=== PATIENT | female | born 1980 | race Caucasian/White ===

== ENCOUNTER 2017-11-30 20:43 | Emergency (ER) | payer SELFPAY ==
[2017-11-30 21:31] LABS: Absolute Lymphocytes (CBC) 2.9 K/uL (0.7-4.9); Absolute Monocytes 0.8 K/uL (0.1-1.3); Basophils % 0.8 % (0-1.3); Hematocrit 35.4 % (36.0-45.0); Lymphocytes % 26.7 % (15.3-44.8); MCV 69.5 fL (80-100); Monocytes % 6.9 % (3.3-12.3); RBC Red Blood Cell Count 5.09 M/uL (3.86-4.86)
[2017-11-30 21:32] LABS: Urine Blood TRACE (NEG); Urine Glucose NEGATIVE (NEG); Urine Protein NEGATIVE (NEG); Urine Specific Gravity >1.030 (1.005-1.030)
[2017-11-30] MEDS ORDERED: ONDANSETRON 4 MG/2 ML VIAL ONE (21:42)
[2017-11-30] MEDS ORDERED: MORPHINE 4 MG/ML SYR ONE (21:42)
[2017-11-30 21:45] LABS: Urine Bacteria <20 /HPF (<20); Urine Culture Reflex Order REFLEXED; Urine Mucus SLIGHT /HPF (NONE SEEN); Urine RBC <5 /HPF (NONE SEEN); Urine Trichomonas PRESENT (NONE SEEN)
[2017-11-30 21:49] LABS: ALT/SGPT 21 U/L (12-78); AST/SGOT 12 U/L (15-37); Albumin 3.5 g/dL (3.4-5.0); Alkaline Phosphatase 91 U/L (45-117); Amylase Level 22 U/L (25-115); BUN Blood Urea Nitrogen 6 mg/dL (7-18); Bicarbonate 26 mmol/L (21-32); Bilirubin Direct < 0.1 mg/dL (0-0.2); Bilirubin Total 0.3 mg/dL (0.2-1.0); Glucose Level 101 mg/dL (74-106); Lipase 96 U/L (73-393); Potassium 3.9 mmol/L (3.5-5.1); Protein, Total 7.6 g/dL (6.4-8.2); Sodium Level 140 mmol/L (136-145)
[2017-11-30 22:29] LABS: Anisocytosis 1+; Blood Morphology Comment NOTED (NOT SEEN); Platelet Estimate ADEQ; Teardrop Cell 1+; Urine White Blood Cell Casts OK
--- NOTE | 2017-12-01 01:50 | ER ---
Nurse's Notes [facility] Name: Brittany Johnson Age: 37 yrs Sex: Female : 1980 Arrival Date: 11/30/2017 Time: 20:44 Bed 20 Private MD: Diagnosis: Mass of Uterus;Trichomoniasis Presentation: 11/30 20:50 Presenting complaint: Patient states: that she is having right lower abd pain that fc started 2 days ago. Gotten worse the past 2 hrs and now radiates to right lower back. Getting out of chair or bending over makes it worse. Denies any urinary problems nausea, vomiting or diarrhea. Transition of care: patient was not received from another setting of care. Onset of symptoms was November 28, 2017. Risk Assessment: Do you want to hurt yourself or someone else? Patient reports no desire to harm self or others. Initial Sepsis Screen: Does the patient meet any 2 criteria? No. Patient's initial sepsis screen is negative. Does the patient have a suspected source of infection? No. Patient's initial sepsis screen is negative. Care prior to arrival: None. 20:50 Method Of Arrival: Ambulatory 20:50 Acuity: YASEMIN 3 Triage Assessment: 20:53 General: Appears uncomfortable, obese, Behavior is calm, cooperative, appropriate for age. Pain: Complains of pain in right lower quadrant Pain radiates to right low back Pain currently is 7 out of 10 on a pain scale. Quality of pain is described as aching, dull, sharp, shooting, Pain began 2-3 days ago. Is continuous, Aggravated by increased activity, repositioning, weight bearing. EENT: No deficits noted. Neuro: Level of Consciousness is awake, alert, obeys commands, Oriented to person, place, time, situation. Cardiovascular: No deficits noted. Respiratory: No deficits noted. GI: Abdomen is obese, Reports lower abdominal pain, Patient currently denies diarrhea, nausea, vomiting. : No deficits noted. Derm: Skin is pink, warm \T\ dry. Musculoskeletal: Circulation, motion, and sensation intact. Capillary refill < 3 seconds, Range of motion: intact in all extremities. 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 - Social history:: Smoking status: Patient uses tobacco products, smokes one pack cigarettes per day. - Ebola Screening: : Patient negative for fever greater than or equal to 101.5 degrees Fahrenheit, and additional compatible Ebola Virus Disease symptoms Patient denies exposure to infectious person Patient denies travel to an Ebola-affected area in the 21 days before illness onset. Screenin:50 Abuse screen: Denies threats or abuse. Denies injuries from another. Nutritional bs1 screening: No deficits noted. Tuberculosis screening: No symptoms or risk factors identified. Fall Risk None identified. Assessment: 21:15 : Reports pain in right flank(s), Denies burning with urination. EENT: No signs bs1 and/or symptoms were reported regarding the EENT system. Derm: Skin is intact. Musculoskeletal: Circulation, motion, and sensation intact. Capillary refill < 3 seconds, Range of motion: intact in all extremities. 21:15 General: Appears in no apparent distress. uncomfortable, Behavior is cooperative, bs1 anxious. Pain: Complains of pain in right low back and abdomen and right lower quadrant. Neuro: Level of Consciousness is awake, alert, obeys commands, Oriented to person, place, time, situation, Appropriate for age. Cardiovascular: Denies chest pain, shortness of breath, Heart tones S1 S2 present Capillary refill < 3 seconds Patient's skin is warm and dry. Respiratory: Airway is patent Trachea midline Respiratory effort is even, unlabored, Respiratory pattern is regular, symmetrical, Breath sounds are clear bilaterally. GI: Abdomen is round non-distended, Bowel sounds present X 4 quads. Abdomen is tender to palpation in right lower quadrant Reports lower abdominal pain, Patient currently denies nausea. 22:45 Reassessment: No changes from previously documented assessment. Patient and/or family bs1 updated on plan of care and expected duration. Pain level reassessed. Patient is alert, oriented x 3, equal unlabored respirations, skin warm/dry/pink. patient refused IV pain medication. 23:45 Reassessment: Patient appears in no apparent distress at this time. Patient and/or bs1 family updated on plan of care and expected duration. Pain level reassessed. Patient is alert, oriented x 3, equal unlabored respirations, skin warm/dry/pink. Pending CT of abdomen. 12/01 00:11 Reassessment: Patient in CT. bs1 00:25 Reassessment: Patient appears in no apparent distress at this time. Patient is alert, bs1 oriented x 3, equal unlabored respirations, skin warm/dry/pink. Patient back from CT. 01:48 Reassessment: Patient appears in no apparent distress at this time. Patient and/or bs1 family updated on plan of care and expected duration. Pain level reassessed. Patient is alert, oriented x 3, equal unlabored respirations, skin warm/dry/pink. patient instructed on dc papers. Patient states understanding of POC and follow up. Vital Signs: 11/30 20:55 BP 119 / 69; Pulse 89; Resp 20; Temp 98.1(O); Pulse Ox 96% on R/A; Weight 106.59 kg fc (R); Height 5 ft. 7 in. (170.18 cm) (R); Pain 7/10; 21:55 BP 109 / 54; Pulse 89; Resp 16 S; Pulse Ox 98% on R/A; bs1 22:55 BP 104 / 76; Pulse 79; Resp 16 S; Pulse Ox 100% on R/A; bs1 23:55 BP 115 / 88; Pulse 80; Resp 16 S; Pulse Ox 97% on R/A; bs1 12/01 00:55 BP 111 / 76; Pulse 75; Resp 17; Pulse Ox 98% on R/A; bs1 01:55 BP 102 / 57; Pulse 85; Resp 16 S; Temp 98(O); Pulse Ox 97% on R/A; Pain 4/10; bs1 11/30 20:55 Body Mass Index 36.81 (106.59 kg, 170.18 cm) ED Course: 11/30 20:44 Patient arrived in ED. es 20:52 Triage completed. fc 20:55 Arm band placed on Patient placed in an exam room, on a stretcher. fc 20:59 Landry Dhillon PA is PHCP. cp 20:59 Vasquez Sears MD is Attending Physician. cp 21:04 Angelica Rios RN is Primary Nurse. bs1 21:14 Inserted saline lock: 20 gauge in right antecubital area, using aseptic technique. bs1 Blood collected. 21:30 Patient has correct armband on for positive identification. Bed in low position. Call bs1 light in reach. Side rails up X 1. Pulse ox on. NIBP on. 21:33 Oral contrast given. jj2 12/01 00:17 CT Abd/Pelvis - W/Contrast In Process Unspecified. EDMS 00:36 CT completed. Patient tolerated procedure well. Patient moved to CT via wheelchair. Patient moved back from CT. 00:45 Bladder scan completed. 0, informed PA. bs1 01:48 Angela Sifuentes MD is Referral Physician. cp 01:57 No provider procedures requiring assistance completed. IV discontinued, bleeding bs1 controlled, No redness/swelling at site. Pressure dressing applied. Administered Medications: 01:53 Drug: Zithromax 1 grams Route: PO; bs1 01:54 Follow up: Response: No adverse reaction bs1 01:53 Drug: metroNIDAZOLE 2 grams Route: PO; bs1 01:54 Follow up: Response: No adverse reaction bs1 01:54 Drug: Rocephin 1 grams Route: IV; Rate: calculated rate; Site: right antecubital; bs1 01:54 Follow up: IV Status: Completed infusion bs1 01:55 Not Given (Patient Refused): morphine 2 mg IVP once bs1 01:55 Not Given (Patient Refused): Zofran 4 mg IVP once; over 2 minutes bs1 Outcome: 01:49 Discharge ordered by MD. cp 01:58 Discharged to home ambulatory. bs1 01:58 Condition: stable 01:58 Discharge instructions given to patient, Instructed on discharge instructions, follow up and referral plans. medication usage, Demonstrated understanding of instructions, follow-up care, medications. 01:59 Patient left the ED. bs1 Signatures: Dispatcher [employer] Shaina Nick Ervin eh Jaramillo, Justin jj2 Chretien, Felicia, RN RN Landry Balderas PA PA cp Salazar, Brittany, RN RN bs1 Corrections: (The following items were deleted from the chart) 11/30 22:00 21:55 GI: Abdomen is round non-distended, Bowel sounds present X 4 quads. Abdomen is bs1 tender to palpation in right lower quadrant bs1 22:01 21:55 General: Appears in no apparent distress. uncomfortable, Behavior is cooperative, bs1 anxious, bs1 : 21:55 Pain: Complains of pain in right low back and abdomen and right lower quadrant bs1bs1 : 21:55 Neuro: Level of Consciousness is awake, alert, obeys commands, Oriented to bs1 person, place, time, situation, Appropriate for age bs1 : 21:55 Cardiovascular: Denies chest pain, shortness of breath, Heart tones S1 S2 present bs1 Capillary refill < 3 seconds Patient's skin is warm and dry. bs1 : 21:55 Respiratory: Airway is patent Trachea midline Respiratory effort is even, bs1 unlabored, Respiratory pattern is regular, symmetrical, Breath sounds are clear bilaterally. bs1 22: 21:55 GI: Abdomen is round non-distended, Bowel sounds present X 4 quads. Abdomen is bs1 tender to palpation in right lower quadrant Reports lower abdominal pain, Patient currently denies nausea, bs1
--- NOTE | 2017-12-01 01:50 | EDPHYS ---
Physician Documentation [facility] Name: Brittany Johnson Age: 37 yrs Sex: Female : 1980 Arrival Date: 11/30/2017 Time: 20:44 Bed 20 Private MD: ED Physician Vasquez Sears HPI: 11/30 21:15 This 37 yrs old Female presents to ER via Ambulatory with complaints of cp Abdominal Pain. 21:15 The patient presents with abdominal pain in the lower abdomen. Onset: The cp symptoms/episode began/occurred 2 day(s) ago. The symptoms radiate to Associated signs and symptoms: Pertinent positives: nausea, Pertinent negatives: blood in stools, constipation, diarrhea, dysuria, fever, vomiting. Modifying factors: the symptoms are aggravated by movement, pressure. 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 - Social history:: Smoking status: Patient uses tobacco products, smokes one pack cigarettes per day. - Ebola Screening: : Patient negative for fever greater than or equal to 101.5 degrees Fahrenheit, and additional compatible Ebola Virus Disease symptoms Patient denies exposure to infectious person Patient denies travel to an Ebola-affected area in the 21 days before illness onset. ROS: 21:20 Constitutional: Negative for body aches, chills, fever, poor PO intake. cp 21:20 Eyes: Negative for injury, pain, redness, and discharge. cp 21:20 ENT: Negative for drainage from ear(s), ear pain, sore throat, difficulty swallowing, difficulty handling secretions. 21:20 Cardiovascular: Negative for chest pain, edema, palpitations. 21:20 Respiratory: Negative for cough, shortness of breath, wheezing. 21:20 Abdomen/GI: Positive for abdominal pain, nausea, Negative for vomiting, diarrhea, constipation, anorexia, black/tarry stool, rectal bleeding. 21:20 Back: Positive for radiated pain. 21:20 Skin: Negative for cellulitis, rash. 21:20 Neuro: Negative for altered mental status, headache, syncope, near syncope, weakness. 21:20 All other systems are negative. Exam: 21:25 Constitutional: The patient appears in no acute distress, alert, awake, non-toxic, well cp developed, well nourished. 21:25 Head/Face: Normocephalic, atraumatic. cp 21:25 Eyes: Periorbital structures: appear normal, Conjunctiva: normal, no exudate, no injection, Sclera: no appreciated abnormality, Lids and lashes: appear normal, bilaterally. 21:25 ENT: External ear(s): are unremarkable, Nose: is normal, Mouth: Lips: moist, Oral mucosa: moist, Posterior pharynx: is normal, airway is patent, no erythema, no exudate. 21:25 Neck: ROM/movement: is normal, is supple, without pain, no range of motions limitations, no nuchal rigidity. 21:25 Chest/axilla: Inspection: normal, Palpation: is normal, no crepitus, no tenderness. 21:25 Cardiovascular: Rate: normal, Rhythm: regular. 21:25 Respiratory: the patient does not display signs of respiratory distress, Respirations: normal, no use of accessory muscles, no retractions, no splinting, no tachypnea, labored breathing, is not present, Breath sounds: are clear throughout, no decreased breath sounds, no stridor, no wheezing. 21:25 Abdomen/GI: Inspection: distension, that is moderate, Bowel sounds: active, all quadrants, Palpation: soft, in all quadrants, moderate abdominal tenderness, in the right lower quadrant, rebound tenderness, is not appreciated, voluntary guarding, is not appreciated, involuntary guarding, is not appreciated. 21:25 Skin: cellulitis, is not appreciated, no rash present. 21:25 Neuro: Orientation: to person, place \T\ time. Mentation: lucid, able to follow commands, Cerebellar function: is grossly normal, Motor: moves all fours, strength is normal, Sensation: no obvious gross deficits. Vital Signs: 20:55 BP 119 / 69; Pulse 89; Resp 20; Temp 98.1(O); Pulse Ox 96% on R/A; Weight 106.59 kg fc (R); Height 5 ft. 7 in. (170.18 cm) (R); Pain 7/10; 21:55 BP 109 / 54; Pulse 89; Resp 16 S; Pulse Ox 98% on R/A; bs1 22:55 BP 104 / 76; Pulse 79; Resp 16 S; Pulse Ox 100% on R/A; bs1 23:55 BP 115 / 88; Pulse 80; Resp 16 S; Pulse Ox 97% on R/A; bs1 12/01 00:55 BP 111 / 76; Pulse 75; Resp 17; Pulse Ox 98% on R/A; bs1 01:55 BP 102 / 57; Pulse 85; Resp 16 S; Temp 98(O); Pulse Ox 97% on R/A; Pain 4/10; bs1 11/30 20:55 Body Mass Index 36.81 (106.59 kg, 170.18 cm) fc MDM: 11/30 20:59 Patient medically screened. cp 21:30 Differential diagnosis: appendicitis, cholecystitis, Cholelithiasis, Ectopic , cp non-specific abd pain, Ovarian Torsion, Ureterolithiasis, urinary tract infection. 12/01 01:47 Data reviewed: vital signs, nurses notes, lab test result(s), radiologic studies, CT cp scan, and as a result, I will discharge patient. 01:48 Counseling: I had a detailed discussion with the patient and/or guardian regarding: the cp historical points, exam findings, and any diagnostic results supporting the discharge/admit diagnosis, lab results, radiology results, the need for outpatient follow up, for definitive care, an OB/Gyne specialist, to return to the emergency department if symptoms worsen or persist or if there are any questions or concerns that arise at home. 01:48 Response to treatment: the patient's symptoms have mildly improved after treatment, and cp as a result, I will discharge patient. Special discussion: Based on the patient's Hx, exam, and Dx evaluation, there is no indication for emergent surgery or inpatient Tx. It is understood by the patient/guardian that if the Sx's persist or worsen they need to return immediately for re-evaluation. 11/30 21:03 Order name: Amylase, Serum; Complete Time: 21:55 cp 11/30 21:55 Interpretation: CAREY 22; Reviewed. 11/30 21:03 Order name: Basic Metabolic Panel; Complete Time: 21:55 cp 11/30 21:55 Interpretation: Normal except: BUN 6; CRE 0.50. cp 11/30 21:03 Order name: CBC with Diff; Complete Time: 23:12 11/30 21:56 Interpretation: Normal except: WBC 11.0; RBC 5.09; HGB 11.2; HCT 35.4; MCV 69.5; MCH cp 22.0; MCHC 31.7; RDW 20.5. 11/30 21:03 Order name: Creatinine for Radiology; Complete Time: 21:55 cp 11/30 23:13 Interpretation: Normal except: CRE 0.50. 11/30 21:03 Order name: Hepatic Function; Complete Time: 21:55 cp 11/30 21:55 Interpretation: Normal except: AST 12; GLOB 4.1; A/G 0.9. 11/30 21:03 Order name: Lipase; Complete Time: 21:55 11/30 21:03 Order name: Urine Microscopic Only; Complete Time: 21:55 11/30 21:55 Interpretation: Normal except: UWBC 10-20; SQEPI 5-10; TRICH PRESENT. 11/30 21:25 Order name: CT Abd/Pelvis - W/Contrast 11/30 21:28 Order name: Urine Dipstick--Ancillary (enter results); Complete Time: 21:55 ms 11/30 21:56 Interpretation: Normal except: UBLD TRACE; UESTR 1+. 11/30 21:28 Order name: Urine --Ancillary (enter results); Complete Time: 21:55 ms 11/30 21:56 Interpretation: Reviewed. 11/30 21:33 Order name: CBC Smear Scan; Complete Time: 23:12 EDIL 11/30 21:46 Order name: Urine Culture [facility] 11/30 21:03 Order name: Urine Test (obtain specimen); Complete Time: 21:43 11/30 21:03 Order name: IV Saline Lock; Complete Time: 21:43 11/30 21:03 Order name: Labs collected and sent; Complete Time: 21:43 11/30 21:03 Order name: Urine Dipstick-Ancillary (obtain specimen); Complete Time: 21:43 cp 12/01 00:27 Order name: Bladder Scanner; Complete Time: 00:46 cp Administered Medications: 01:53 Drug: Zithromax 1 grams Route: PO; bs1 01:54 Follow up: Response: No adverse reaction bs1 01:53 Drug: metroNIDAZOLE 2 grams Route: PO; bs1 01:54 Follow up: Response: No adverse reaction bs1 01:54 Drug: Rocephin 1 grams Route: IV; Rate: calculated rate; Site: right antecubital; bs1 01:54 Follow up: IV Status: Completed infusion bs1 01:55 Not Given (Patient Refused): morphine 2 mg IVP once bs1 01:55 Not Given (Patient Refused): Zofran 4 mg IVP once; over 2 minutes bs1 Disposition: 06:24 Co-signature as Attending Physician, Vasquez Sears MD. Disposition: 12/01/17 01:49 Discharged to Home. Impression: Mass of Uterus, Trichomoniasis. - Condition is Stable. - Discharge Instructions: Trichomoniasis, Uterine Fibroids, [id number]. - Prescriptions for Tramadol 50 mg Oral Tablet - take 1 tablet by ORAL route every 8 hours as needed; 20 tablet. - Medication Reconciliation Form, Thank You Letter, Antibiotic Education, Prescription Opioid Use form. - Follow up: Angela Sifuentes MD; When: 1 - 2 days; Reason: uterine mass. - Problem is new. - Symptoms have improved. Signatures: Dispatcher [employer] EDMS Anika Springer RN RN Landry Balderas PA PA Vasquez Sears MD MD Angelica Rios RN RN bs1 Corrections: (The following items were deleted from the chart) 01:59 01:49 12/01/2017 01:49 Discharged to Home. Impression: Mass of Uterus; Trichomoniasis. bs1 Condition is Stable. Forms are Medication Reconciliation Form, Thank You Letter, Antibiotic Education, Prescription Opioid Use. Follow up: Angela Sifuentes; When: 1 - 2 days; Reason: uterine mass. Problem is new. Symptoms have improved. cp
[2017-12-01] MEDS ORDERED: metroNIDAZOLE 500 MG TABLET ONE (01:52)
[2017-12-01] MEDS ORDERED: AZITHROMYCIN 250 MG TAB ONE (01:52)
[2017-12-01] MEDS ORDERED: CEFTRIAXONE/SWI 1gm 1 GM/10 ML SYR ONE (01:53)
--- NOTE | 2017-12-01 08:06 | RAD REPORT ---
EXAM DESCRIPTION: CT - Abdomen Pelvis W Contrast - 12/01/2017 6:49 am CLINICAL HISTORY: Abdominal pain/right lower quadrant pain COMPARISON: none. TECHNIQUE: Computed axial tomography of the abdomen pelvis was obtained. 100 cc Isovue-300 was admin istered intravenously. Oral contrast was given. A preliminary report was generated by [facility] radiolo gi and reviewed prior to this dictation All CT scans are performed using dose optimization technique as appropriate and may include automated exposure control or mA/KV adjustment according to patient size. FINDINGS: The liver, spleen, pancreas, adrenal and kidneys appear unremarkable. There is no evidence of diverticulitis. The appendix is normal. A 25 centimeter uterine mass compresses the bladder and displaces the bowel laterally. The mass exten ds into the abdomen. The ovaries appear unremarkable IMPRESSION: 25 centimeter uterine mass may represent a fibroid or leiomyosarcoma
== END 2017-12-01 01:59 | disposition home or self-care (01) ==
LOC: ER 20:43
DX: A59.9 Trichomoniasis, unspecified (principal); N85.9 Noninflammatory disorder of uterus, unspecified; Z91.040 Latex allergy status; Z91.048 Other nonmedicinal substance allergy status; F17.210 Nicotine dependence, cigarettes, uncomplicated
CPT/HCPCS: 36415; 74177; 80048; 80076; 81003; 81015; 81025; 82150; 83690; 85025; 87077; 87086; 87088; 87186; 96374; 99284; J0696; J2405; Q9967

== ENCOUNTER 2017-12-13 20:55 | Emergency (ER) | payer SELFPAY ==
[2017-12-13] MEDS ORDERED: NA CHLORIDE 0.9% 1,000 ML ONE (22:31)
[2017-12-13] MEDS ORDERED: FENTANYL CITR 100 MCG/2 ML ONE (22:31)
[2017-12-13] MEDS ORDERED: ONDANSETRON 4 MG/2 ML VIAL ONE (22:31)
[2017-12-13 22:37] LABS: Absolute Lymphocytes (CBC) 1.6 K/uL (0.7-4.9); Absolute Monocytes 0.8 K/uL (0.1-1.3); Absolute Neutrophil 10.8 K/uL (1.8-8.0); Basophils % 0.5 % (0-1.3); Eosinophils % 2.4 % (0-4.4); Hematocrit 27.9 % (36.0-45.0); Lymphocytes % 11.8 % (15.3-44.8); MCH 22.6 pg (27.0-35.0); MCV 69.5 fL (80-100); MPV 7.7 fL (7.6-11.3); Monocytes % 5.8 % (3.3-12.3); RBC Red Blood Cell Count 4.01 M/uL (3.86-4.86)
[2017-12-13 23:01] LABS: ALT/SGPT 13 U/L (12-78); AST/SGOT 24 U/L (15-37); Alkaline Phosphatase 83 U/L (45-117); BUN Blood Urea Nitrogen 7 mg/dL (7-18); Bicarbonate 26 mmol/L (21-32); Bilirubin Direct 0.2 mg/dL (0-0.2); Bilirubin Total 0.6 mg/dL (0.2-1.0); Glucose Level 149 mg/dL (74-106); Lipase 65 U/L (73-393); Potassium 3.7 mmol/L (3.5-5.1); Protein, Total 7.6 g/dL (6.4-8.2); Sodium Level 133 mmol/L (136-145)
[2017-12-13 23:22] LABS: Urine Blood 3+ (NEG); Urine Glucose NEGATIVE (NEG); Urine Protein 2+ (NEG); Urine Specific Gravity 1.015 (1.005-1.030); Urine pH 5.5 (5.0-7.0)
[2017-12-13 23:22] LABS: Urine RBC TNTC /HPF (NONE SEEN)
[2017-12-13 23:23] LABS: Urine Bacteria <20 /HPF (<20); Urine Culture Reflex Order REFLEXED
[2017-12-13 23:31] LABS: Blood Morphology Comment NOTED (NOT SEEN); Platelet Estimate ADEQ; Urine White Blood Cell Casts OK
[2017-12-13] MEDS ORDERED: CEFTRIAXONE/SWI 1gm 2 GM/20 ML SYR ONE (23:50)
[2017-12-13] MEDS ORDERED: KETOROLAC 30 MG/ML INJ ONE (23:53)
--- NOTE | 2017-12-14 00:04 | ER ---
Nurse's Notes [facility] Name: Brittany Johnson Age: 37 yrs Sex: Female : 1980 Arrival Date: 12/13/2017 Time: 20:56 Bed 6 Private MD: Diagnosis: pelvic pain;UTI Presentation: 12/13 21:06 Presenting complaint: Patient states: Seen in this ER on 12/01 and DC with instructions aj to follow up, DX with uterine mass. Patient reports N/V and no bowel movement in 5 days. Patient reports pain is severe. Transition of care: patient was not received from another setting of care. Onset of symptoms was December 01, 2017. Risk Assessment: Do you want to hurt yourself or someone else? Patient reports no desire to harm self or others. Initial Sepsis Screen: Does the patient meet any 2 criteria? No. Patient's initial sepsis screen is negative. Does the patient have a suspected source of infection? No. Patient's initial sepsis screen is negative. Care prior to arrival: None. 21:06 Method Of Arrival: Ambulatory 21:06 Acuity: YASEMIN 3 Triage Assessment: 21:08 General: Appears in no apparent distress. comfortable, Behavior is calm, cooperative. aj Pain: Complains of pain in pelvis. Neuro: Level of Consciousness is awake, alert, obeys commands, Oriented to person, place, time, situation, Appropriate for age. Respiratory: Airway is patent Respiratory effort is even, unlabored, Respiratory pattern is regular, symmetrical. GI: Reports lower abdominal pain, constipation, nausea, vomiting. : Reports vaginal bleeding that is moderate flow. Derm: Skin is intact, is healthy with good turgor, Skin is pale. 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 - Social history:: Smoking status: Patient uses tobacco products, smokes one pack cigarettes per day. - Ebola Screening: : Patient negative for fever greater than or equal to 101.5 degrees Fahrenheit, and additional compatible Ebola Virus Disease symptoms Patient denies exposure to infectious person Patient denies travel to an Ebola-affected area in the 21 days before illness onset No symptoms or risks identified at this time. - Family history:: not pertinent. - Hospitalizations: : No recent hospitalization is reported. Screenin:48 Abuse screen: Denies threats or abuse. Denies injuries from another. Nutritional bp screening: No deficits noted. Tuberculosis screening: No symptoms or risk factors identified. Fall Risk None identified. Assessment: 21:35 General: SEE TRIAGE NOTE. bp 23:00 Reassessment: ORDERS COMPLETED, AWAITING CT RESULTS AND POSSIBLE OB C/S. bp 12/14 00:12 Reassessment: D/C ON HOLD FOR RAD RESULTS ON CT. 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 bp 00:17 Reassessment: PT D/C HOME AMBULATORY WITH FAMILY, DX WITH PELVIC MASS AND UTI. bp Vital Signs: 12/13 21:08 BP 132 / 67; Pulse 108; Resp 24; Temp 99.0; Pulse Ox 98% on R/A; Weight 104.33 kg; aj Height 5 ft. 7 in. (170.18 cm); 22:33 BP 99 / 51; Pulse 99; Resp 22; Pulse Ox 100% on R/A; mt 12/14 00:00 BP 120 / 67; Pulse 104; Resp 20; Pulse Ox 100% on R/A; bp 12/13 21:08 Body Mass Index 36.02 (104.33 kg, 170.18 cm) ED Course: 12/13 20:56 Patient arrived in ED. es 21:07 Triage completed. aj 21:08 Arm band placed on right wrist. Patient placed in an exam room. aj 21:16 Geo Waldron MD is Attending Physician. wa 21:26 Eliseo Carmen, PATTI is Primary Nurse. bp 21:48 Patient has correct armband on for positive identification. Bed in low position. Call bp light in reach. Side rails up X2. Adult w/ patient. 22:20 Inserted saline lock: 20 gauge in right forearm, using aseptic technique. Blood ea collected. 12/14 00:12 No provider procedures requiring assistance completed. IV discontinued, intact, bp bleeding controlled, No redness/swelling at site. Pressure dressing applied. Administered Medications: 12/13 22:20 Drug: Zofran 4 mg Route: IVP; Site: right forearm; ea 23:00 Follow up: Response: No adverse reaction ea 22:20 Drug: fentaNYL (PF) 50 mcg Route: IVP; Site: right forearm; ea 23:00 Follow up: Response: No adverse reaction; Pain is decreased ea 22:20 Drug: NS 0.9% 1000 ml Route: IV; Rate: 1 bolus; Site: right forearm; ea 23:57 Follow up: Response: No adverse reaction; IV Status: Completed infusion; IV Intake: ea 1000ml 23:56 Drug: Rocephin - (cefTRIAXone) 2 grams Route: IVPB; Infused Over: 30 mins; Site: right ea forearm; 12/14 00:19 Follow up: IV Status: Completed infusion bp 12/13 23:56 Drug: TORadol 30 mg Route: IVP; Site: right forearm; ea 12/14 00:13 Follow up: Response: Pain is decreased bp Intake: 12/13 23:57 IV: 1000ml; Total: 1000ml. ea Outcome: 12/14 00:03 Discharge ordered by . wa 00:16 Condition: improved ea 00:17 Discharged to home ambulatory, with family. bp 00:17 Discharge instructions given to patient, family, Instructed on discharge instructions, follow up and referral plans. medication usage, Demonstrated understanding of instructions, follow-up care, medications, Prescriptions given X 3. 00:18 Patient left the ED. bp Addendum: 12/19/2017 08:20 Addendum: Culture Results: Positive urine culture. Phone call Attempt #1 spoke with s s patient who reports that her symptoms have improved and she has already followed up with PCP. No further action required. Signatures: Brittany Rosario RN Shaina Day Shelby, RN RN ss Thompson, Moriah mt Antunez, Elena, RN RN ea Appiah, William, MD MD wa Peltier, Brian RN PATTI bp Corrections: (The following items were deleted from the chart) 12/14 00:12 12/13 23:33 BP 120 / 67; Pulse 104bpm; Resp 20bpm; Pulse Ox 100% RA; mt bp
--- NOTE | 2017-12-14 00:04 | EDPHYS ---
Physician Documentation [facility] Name: Brittany Johnson Age: 37 yrs Sex: Female : 1980 Arrival Date: 12/13/2017 Time: 20:56 Bed 6 Private MD: ED Physician Geo Waldron HPI: 12/14 07:01 This 37 yrs old Female presents to ER via Ambulatory with complaints of wa Fever, Vaginal Pain. 07:01 The patient presents with pelvic pain, that is located in/on the pelvis. Onset: The wa symptoms/episode began/occurred 1 week(s) ago. Modifying factors: The symptoms are alleviated by nothing, the symptoms are aggravated by nothing. Associated signs and symptoms: Pertinent positives: fever, nausea, difficulty voiding stool. decreased appetite, Pertinent negatives: vomiting. Severity of symptoms: At their worst the symptoms were moderate, in the emergency department the symptoms are actually worse. The patient has experienced similar episodes in the past, a few times. The patient has been recently seen by a physician: in this ER. pt dx'd with large pelvic mass. 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 - Social history:: Smoking status: Patient uses tobacco products, smokes one pack cigarettes per day. - Ebola Screening: : Patient negative for fever greater than or equal to 101.5 degrees Fahrenheit, and additional compatible Ebola Virus Disease symptoms Patient denies exposure to infectious person Patient denies travel to an Ebola-affected area in the 21 days before illness onset No symptoms or risks identified at this time. - Family history:: not pertinent. - Hospitalizations: : No recent hospitalization is reported. ROS: 12/14 07:04 Positive for pelvic pain, of the pelvis, Negative for hematuria. wa Constitutional: Negative for fever, chills, and weight loss, Eyes: Negative for injury, pain, redness, and discharge, ENT: Negative for injury, pain, and discharge, Neck: Negative for injury, pain, and swelling, Cardiovascular: Negative for chest pain, palpitations, and edema, Respiratory: Negative for shortness of breath, cough, wheezing, and pleuritic chest pain, Back: Negative for injury and pain, MS/Extremity: Negative for injury and deformity, Skin: Negative for injury, rash, and discoloration, Neuro: Negative for headache, weakness, numbness, tingling, and seizure, Psych: Negative for depression, anxiety, suicide ideation, homicidal ideation, and hallucinations. Abdomen/GI: Positive for abdominal pain, constipation, abdominal distension, Negative for vomiting, diarrhea. Exam: 07:05 Constitutional: This is a well developed, well nourished patient who is awake, alert, wa and in no acute distress. Head/Face: Normocephalic, atraumatic. Eyes: Pupils equal round and reactive to light, extra-ocular motions intact. Lids and lashes normal. Conjunctiva and sclera are non-icteric and not injected. Cornea within normal limits. Periorbital areas with no swelling, redness, or edema. ENT: Nares patent. No nasal discharge, no septal abnormalities noted. Tympanic membranes are normal and external auditory canals are clear. Oropharynx with no redness, swelling, or masses, exudates, or evidence of obstruction, uvula midline. Mucous membranes moist. Neck: Trachea midline, no thyromegaly or masses palpated, and no cervical lymphadenopathy. Supple, full range of motion without nuchal rigidity, or vertebral point tenderness. No Meningismus. Chest/axilla: Normal chest wall appearance and motion. Nontender with no deformity. No lesions are appreciated. Cardiovascular: Regular rate and rhythm with a normal S1 and S2. No gallops, murmurs, or rubs. Normal PMI, no JVD. No pulse deficits. Respiratory: Lungs have equal breath sounds bilaterally, clear to auscultation and percussion. No rales, rhonchi or wheezes noted. No increased work of breathing, no retractions or nasal flaring. Back: No spinal tenderness. No costovertebral tenderness. Full range of motion. Skin: Warm, dry with normal turgor. Normal color with no rashes, no lesions, and no evidence of cellulitis. MS/ Extremity: Pulses equal, no cyanosis. Neurovascular intact. Full, normal range of motion. Neuro: Awake and alert, GCS 15, oriented to person, place, time, and situation. Cranial nerves II-XII grossly intact. Motor strength 5/5 in all extremities. Sensory grossly intact. Cerebellar exam normal. Normal gait. Psych: Awake, alert, with orientation to person, place and time. Behavior, mood, and affect are within normal limits. 07:05 Abdomen/GI: Inspection: distension, that is severe, Bowel sounds: diminished, Palpation: moderate abdominal tenderness, in the large protuberant abd noted. soft at the top. hard mass palpated in the midline. Vital Signs: 12/13 21:08 BP 132 / 67; Pulse 108; Resp 24; Temp 99.0; Pulse Ox 98% on R/A; Weight 104.33 kg; aj Height 5 ft. 7 in. (170.18 cm); 22:33 BP 99 / 51; Pulse 99; Resp 22; Pulse Ox 100% on R/A; mt 12/14 00:00 BP 120 / 67; Pulse 104; Resp 20; Pulse Ox 100% on R/A; bp 12/13 21:08 Body Mass Index 36.02 (104.33 kg, 170.18 cm) aj MDM: 12/13 21:16 Patient medically screened. mn 12/14 07:07 Differential diagnosis: eval for obstruction. r/o infection. Data reviewed: vital wa signs, nurses notes. Test interpretation: by ED physician or midlevel provider: labs noted for UTI. Response to treatment: the patient's symptoms have markedly improved after treatment. ED course: d/c'd to f/u withe her appt at [facility]. no signs of obstruction. gave copy of most recent CT showing the mass for pt to present at consultation. 12/13 21:55 Order name: Basic Metabolic Panel; Complete Time: 23:38 mn 12/13 21:55 Order name: CBC with Diff; Complete Time: 23:38 mn 12/13 21:55 Order name: Hepatic Function; Complete Time: 23:38 mn 12/13 21:55 Order name: Lipase; Complete Time: 23:38 mn 12/13 21:55 Order name: Urine Microscopic Only; Complete Time: 23:38 mn 12/13 22:43 Order name: CBC Smear Scan; Complete Time: 23:38 EDID 12/13 22:52 Order name: Urine Dipstick--Ancillary (enter results); Complete Time: 23:38 [facility] 12/13 22:52 Order name: Urine --Ancillary (enter results); Complete Time: 23:38 [facility] 12/13 23:24 Order name: Urine Culture [facility] 12/13 21:55 Order name: IV Saline Lock; Complete Time: 22:35 mn 12/13 21:55 Order name: Labs collected and sent; Complete Time: 22:35 mn 12/13 21:55 Order name: Urine Dipstick-Ancillary (obtain specimen); Complete Time: 22:52 mn Administered Medications: 12/13 22:20 Drug: Zofran 4 mg Route: IVP; Site: right forearm; ea 23:00 Follow up: Response: No adverse reaction ea 22:20 Drug: fentaNYL (PF) 50 mcg Route: IVP; Site: right forearm; ea 23:00 Follow up: Response: No adverse reaction; Pain is decreased ea 22:20 Drug: NS 0.9% 1000 ml Route: IV; Rate: 1 bolus; Site: right forearm; ea 23:57 Follow up: Response: No adverse reaction; IV Status: Completed infusion; IV Intake: ea 1000ml 23:56 Drug: Rocephin - (cefTRIAXone) 2 grams Route: IVPB; Infused Over: 30 mins; Site: right ea forearm; 12/14 00:19 Follow up: IV Status: Completed infusion bp 12/13 23:56 Drug: TORadol 30 mg Route: IVP; Site: right forearm; ea 12/14 00:13 Follow up: Response: Pain is decreased bp Disposition: 12/14/17 00:03 Discharged to Home. Impression: pelvic pain, UTI. - Condition is Stable. - Discharge Instructions: Pelvic Mass, Urinary Tract Infection, Adult, [id number]. - Prescriptions for Keflex 500 mg Oral Capsule - take 1 capsule by ORAL route every 8 hours for 5 days; 15 capsule. [place] 5- 325 mg Oral Tablet - take 1 tablet by ORAL route every 6 hours As needed; 6 tablet. senna 8.6 mg Oral tablet - take 2 tablet by ORAL route once daily; 20 tablet. - Medication Reconciliation Form, Thank You Letter, Antibiotic Education, Prescription Opioid Use form. - Follow up: Private Physician; When: Tomorrow; Reason: per your appointment. - Problem is new. - Symptoms have improved. - Notes: take the medicines as prescribed. give the CT scan disc to the doctor at [facility]. Signatures: Dispatcher [employer] Brittany Chiu, RN RN Elizabeth Liu RN RN Geo Valle MD MD wa Peltier, Brian, RN RN bp Corrections: (The following items were deleted from the chart) 00:18 00:03 12/14/2017 00:03 Discharged to Home. Impression: pelvic pain; UTI. Condition is bp Stable. Forms are Medication Reconciliation Form, Thank You Letter, Antibiotic Education, Prescription Opioid Use. Follow up: Private Physician; When: Tomorrow; Reason: per your appointment. Problem is new. Symptoms have improved. merry
== END 2017-12-14 00:18 | disposition home or self-care (01) ==
LOC: ER 20:55
DX: N39.0 Urinary tract infection, site not specified (principal); F17.210 Nicotine dependence, cigarettes, uncomplicated; Z91.040 Latex allergy status; Z91.048 Other nonmedicinal substance allergy status
CPT/HCPCS: 36415; 80048; 80076; 81003; 81015; 81025; 83690; 85025; 87077; 87086; 87088; 87186; 96361; 96365; 96375; 99284; J0696; J2405; J3010; J7030

== ENCOUNTER 2018-03-26 15:01 | Emergency (ER) | payer SELFPAY ==
[2018-03-26] MEDS ORDERED: predniSONE 20 MG TAB ONE (15:47)
[2018-03-26] MEDS ORDERED: LEVALBUTEROL 1.25 MG/3 ML NEB ONE (15:47)
--- NOTE | 2018-03-26 15:58 | RAD REPORT ---
EXAM DESCRIPTION: RAD - Chest Pa And Lat (2 Views) - 03/26/2018 3:39 pm CLINICAL HISTORY: Cough and congestion, flu-like symptoms COMPARISON: None. TECHNIQUE: PA and lateral views of the chest were obtained. FINDINGS: The lungs are normal volume. No focal consolidation or mass. Interstitial markings are pro minent with the baseline unknown. Lung markings are more prominent than typically seen at this age. Heart size is normal and central vasculature is within normal limits. No pleural effusion or pneumo thorax seen. No acute bony finding noted. No aortic abnormality. IMPRESSION: Prominent interstitial pattern likely viral infiltrate or interstitial edema. No focal mass or consolidation.
[2018-03-26] MEDS ORDERED: HYDROCODONE/CHLORPHEN 5 ML/OSYR ONE (16:36)
[2018-03-26] MEDS ORDERED: IBUPROFEN 400 MG TAB ONE (17:31)
[2018-03-26] MEDS ORDERED: IBUPROFEN 200 MG TAB PO ONE ×2 (17:32)
[2018-03-26] MEDS ORDERED: ACETAMINOPHEN 500 MG TAB ONE (17:33)
--- NOTE | 2018-03-26 18:33 | ER ---
Nurse's Notes [facility] Name: Brittany Johnson Age: 37 yrs Sex: Female : 1980 Arrival Date: 03/26/2018 Time: 15:03 Bed 28 Private MD: Diagnosis: Bronchitis, not specified as acute or chronic Presentation: 03/26 15:11 Presenting complaint: Patient states: cough, shortness of breath, runny nose for 6 mg2 days. had 2 episodes of pneumonia for the past 2 years. Transition of care: patient was not received from another setting of care. Onset of symptoms was March 2018. Risk Assessment: Do you want to hurt yourself or someone else? Patient reports no desire to harm self or others. Initial Sepsis Screen: Does the patient meet any 2 criteria? No. Patient's initial sepsis screen is negative. Does the patient have a suspected source of infection? No. Patient's initial sepsis screen is negative. Care prior to arrival: None. 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 - Social history:: Smoking status: Patient uses tobacco products, smokes one-half pack cigarettes per day, cigars, Patient/guardian denies using alcohol, street drugs, IV drugs. - Ebola Screening: : No symptoms or risks identified at this time. Screenin:17 Abuse screen: Denies threats or abuse. Denies injuries from another. Nutritional mg2 screening: No deficits noted. Tuberculosis screening: No symptoms or risk factors identified. Fall Risk None identified. Assessment: 15:17 General: Appears uncomfortable, Behavior is calm, cooperative. Pain: Complains of pain mg2 in chest Aggravated by during coughing. Neuro: Level of Consciousness is awake, alert, obeys commands, Oriented to person, place, time, situation. Cardiovascular: Capillary refill < 3 seconds Patient's skin is warm and dry. Respiratory: Reports shortness of breath cough that is productive, hacking, Breath sounds are clear bilaterally. GI: No deficits noted. : No deficits noted. EENT: No deficits noted. Derm: Skin is intact, is healthy with good turgor, Skin is pink, warm \T\ dry. normal. Musculoskeletal: No deficits noted. 16:42 Reassessment: Patient and/or family updated on plan of care and expected duration. Pain mg2 level reassessed. Vital Signs: 15:12 BP 141 / 108; Pulse 123; Resp 28; Temp 99.5(O); Pulse Ox 95% on R/A; Weight 108.86 kg; mg2 Height 5 ft. 7 in. (170.18 cm); Pain 2/10; 16:41 BP 144 / 80; Pulse 122; Resp 28; Pulse Ox 96% on R/A; Pain 0/10; mg2 17:29 BP 153 / 93; Pulse 120; Resp 26; Temp 102.7(O); Pulse Ox 95% on 3 lpm NC; Pain 0/10; mg2 18:31 BP 142 / 80; Pulse 112; Resp 24; Temp 101.1(O); Pulse Ox 95% on R/A; mg2 15:12 Body Mass Index 37.59 (108.86 kg, 170.18 cm) mg2 ED Course: 15:03 Patient arrived in ED. rg4 15:06 Jonatan Sellers, PATTI is Primary Nurse. mg2 15:09 Hal Thomason NP is PHCP. pm1 15:09 Vasquez Sears MD is Attending Physician. pm1 15:12 Triage completed. mg2 15:14 Arm band placed on. mg2 15:17 No provider procedures requiring assistance completed. mg2 15:37 X-ray completed. Patient tolerated procedure well. Patient moved back from radiology. kp1 15:38 Chest Pa And Lat (2 Views) XRAY In Process Unspecified. EDMS 18:31 Patient did not have IV access during this emergency room visit. mg2 18:33 Patient has correct armband on for positive identification. mg2 Administered Medications: 15:44 Drug: Xopenex 1.25 mg Route: Inhalation; mg2 16:30 Follow up: Response: No adverse reaction; Marked relief of symptoms mg2 15:44 Drug: predniSONE 60 mg Route: PO; mg2 16:24 Follow up: Response: No adverse reaction tl3 16:24 Drug: Tussionex Pennkinetic ER 5 ml Route: PO; tl3 17:20 Follow up: Response: No adverse reaction; Marked relief of symptoms mg2 17:29 Drug: Tylenol 1000 mg Route: PO; mg2 18:20 Follow up: Response: No adverse reaction; Marked relief of symptoms; Temperature is mg2 decreased 17:29 Drug: Motrin 600 mg Route: PO; mg2 18:20 Follow up: Response: No adverse reaction; Marked relief of symptoms mg2 Outcome: 18:16 Discharge ordered by MD. pm1 18:32 Discharged to home ambulatory. mg2 18:32 Condition: stable 18:32 Discharge instructions given to patient, family, Instructed on discharge instructions, follow up and referral plans. medication usage, Demonstrated understanding of instructions, follow-up care, medications, Prescriptions given X 4. 18:35 Patient left the ED. mg2 Signatures: Dispatcher [employer] EDMS Hal Thomason, MICHELE HL7 INTERFACE DEVELOPER pm1 Sujata Rashid rg4 Kayleigh Whiting kp1 Ngozi Jordan RN RN tl3 Jonatan Sellers RN RN mg2
--- NOTE | 2018-03-26 18:33 | EDPHYS ---
Physician Documentation [facility] Name: Brittany Johnson Age: 37 yrs Sex: Female : 1980 Arrival Date: 03/26/2018 Time: 15:03 Bed 28 Private MD: ED Physician Vasquez Sears HPI: 03/26 18:09 This 37 yrs old Female presents to ER via Ambulatory with complaints of Flu pm1 Symptoms. 18:09 The patient or guardian reports cough, with productive sputum, that is white, improved, pm1 initially greenish. Onset: The symptoms/episode began/occurred 6 day(s) ago. Severity of symptoms: in the emergency department the symptoms have improved. Modifying factors: The symptoms are alleviated by nebulizer treatment, taking mother's albuterol at home the symptoms are aggravated by nothing. Associated signs and symptoms: Pertinent negatives: ear ache, fever, nausea, vomiting. The patient has experienced similar episodes in the past, pneumonia 2 years ago. The patient has not recently seen a physician. 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 - Social history:: Smoking status: Patient uses tobacco products, smokes one-half pack cigarettes per day, cigars, Patient/guardian denies using alcohol, street drugs, IV drugs. - Ebola Screening: : No symptoms or risks identified at this time. ROS: 18:09 Constitutional: Negative for fever, chills, and weight loss, Eyes: Negative for injury, pm1 pain, redness, and discharge, ENT: Negative for injury, pain, and discharge, Neck: Negative for injury, pain, and swelling, Cardiovascular: Negative for chest pain, palpitations, and edema. 18:09 Abdomen/GI: Negative for abdominal pain, nausea, vomiting, diarrhea, and constipation, Back: Negative for injury and pain, : Negative for injury, bleeding, discharge, and swelling, MS/Extremity: Negative for injury and deformity, Skin: Negative for injury, rash, and discoloration, Neuro: Negative for headache, weakness, numbness, tingling, and seizure. 18:09 Respiratory: Positive for cough, shortness of breath, wheezing, Negative for Exam: 18:09 Constitutional: This is a well developed, well nourished patient who is awake, alert, pm1 and in no acute distress. Head/Face: Normocephalic, atraumatic. Eyes: Pupils equal round and reactive to light, extra-ocular motions intact. Lids and lashes normal. Conjunctiva and sclera are non-icteric and not injected. Cornea within normal limits. Periorbital areas with no swelling, redness, or edema. ENT: Nares patent. No nasal discharge, no septal abnormalities noted. Tympanic membranes are normal and external auditory canals are clear. Oropharynx with no redness, swelling, or masses, exudates, or evidence of obstruction, uvula midline. Mucous membranes moist. Neck: Trachea midline, no thyromegaly or masses palpated, and no cervical lymphadenopathy. Supple, full range of motion without nuchal rigidity, or vertebral point tenderness. No Meningismus. Chest/axilla: Normal chest wall appearance and motion. Nontender with no deformity. No lesions are appreciated. Cardiovascular: Regular rate and rhythm with a normal S1 and S2. No gallops, murmurs, or rubs. Normal PMI, no JVD. No pulse deficits. 18:09 Abdomen/GI: Soft, non-tender, with normal bowel sounds. No distension or tympany. No guarding or rebound. No evidence of tenderness throughout. Back: No spinal tenderness. No costovertebral tenderness. Full range of motion. Skin: Warm, dry with normal turgor. Normal color with no rashes, no lesions, and no evidence of cellulitis. MS/ Extremity: Pulses equal, no cyanosis. Neurovascular intact. Full, normal range of motion. 18:09 Respiratory: the patient does not display signs of respiratory distress, Respirations: normal, Breath sounds: wheezing: is heard diffusely. 18:09 Neuro: Orientation: is normal, Motor: is normal, moves all fours, strength is normal, strength is 5/5 in all extremities. Vital Signs: 15:12 BP 141 / 108; Pulse 123; Resp 28; Temp 99.5(O); Pulse Ox 95% on R/A; Weight 108.86 kg; mg2 Height 5 ft. 7 in. (170.18 cm); Pain 2/10; 16:41 BP 144 / 80; Pulse 122; Resp 28; Pulse Ox 96% on R/A; Pain 0/10; mg2 17:29 BP 153 / 93; Pulse 120; Resp 26; Temp 102.7(O); Pulse Ox 95% on 3 lpm NC; Pain 0/10; mg2 18:31 BP 142 / 80; Pulse 112; Resp 24; Temp 101.1(O); Pulse Ox 95% on R/A; mg2 15:12 Body Mass Index 37.59 (108.86 kg, 170.18 cm) mg2 MDM: 15:09 Patient medically screened. pm1 18:14 Data reviewed: vital signs. Data interpreted: Pulse oximetry: on room air is 96 %. pm1 Interpretation: normal. Counseling: I had a detailed discussion with the patient and/or guardian regarding: the historical points, exam findings, and any diagnostic results supporting the discharge/admit diagnosis, radiology results, the need for outpatient follow up, to return to the emergency department if symptoms worsen or persist or if there are any questions or concerns that arise at home. 03/26 15:27 Order name: Flu; Complete Time: 16:34 pm1 03/26 15:27 Order name: Chest Pa And Lat (2 Views) XRAY; Complete Time: 16:22 pm1 Administered Medications: 15:44 Drug: Xopenex 1.25 mg Route: Inhalation; mg2 16:30 Follow up: Response: No adverse reaction; Marked relief of symptoms mg2 15:44 Drug: predniSONE 60 mg Route: PO; mg2 16:24 Follow up: Response: No adverse reaction tl3 16:24 Drug: Tussionex Pennkinetic ER 5 ml Route: PO; tl3 17:20 Follow up: Response: No adverse reaction; Marked relief of symptoms mg2 17:29 Drug: Tylenol 1000 mg Route: PO; mg2 18:20 Follow up: Response: No adverse reaction; Marked relief of symptoms; Temperature is mg2 decreased 17:29 Drug: Motrin 600 mg Route: PO; mg2 18:20 Follow up: Response: No adverse reaction; Marked relief of symptoms mg2 Disposition: 03/26/18 18:16 Discharged to Home. Impression: Bronchitis, not specified as acute or chronic. - Condition is Stable. - Discharge Instructions: Acute Bronchitis, Adult. - Prescriptions for Zithromax Z- Evelio 250 mg Oral Tablet - take 1 tablet by ORAL route as directed for 5 days Day 1 - take two (2) tablets one time. Day 2, 3, 4 , 5 take one (1) tablet once daily.; 6 tablet. Medrol (Evelio) 4 mg Oral Tablets, Dose Pack - take 1 tablet by ORAL route as directed - follow package instructions; 1 packet. Albuterol Sulfate 90 mcg/actuation - inhale 1-2 puff by INHALATION route every 4-6 hours; 1 Inhaler. Guaifenesin AC 10- 100 mg/5 mL Oral Liquid - take 10 milliliter by ORAL route every 4 hours As needed; 240 milliliter. - Medication Reconciliation Form, Thank You Letter, Antibiotic Education, Prescription Opioid Use form. - Follow up: Emergency Department; When: As needed; Reason: Worsening of condition. Follow up: Private Physician; When: 2 - 3 days; Reason: Recheck today's complaints, Continuance of care, Re-evaluation by your physician. - Problem is new. - Symptoms have improved. Signatures: Dispatcher [employer] EDME Hal Thomason, MARKETING OPERATIONS INTERN MARKETING OPERATIONS INTERN pm1 Ngozi Jordan RN RN tl3 Jonatan Sellers, PATTI RN mg2 Corrections: (The following items were deleted from the chart) 18:35 18:16 03/26/2018 18:16 Discharged to Home. Impression: Bronchitis, not specified as mg2 acute or chronic. Condition is Stable. Forms are Medication Reconciliation Form, Thank You Letter, Antibiotic Education, Prescription Opioid Use. Follow up: Emergency Department; When: As needed; Reason: Worsening of condition. Follow up: Private Physician; When: 2 - 3 days; Reason: Recheck today's complaints, Continuance of care, Re-evaluation by your physician. Problem is new. Symptoms have improved. pm1
== END 2018-03-26 18:35 | disposition home or self-care (01) ==
LOC: ER 15:01
DX: J40 Bronchitis, not specified as acute or chronic (principal); F17.210 Nicotine dependence, cigarettes, uncomplicated; F17.290 Nicotine dependence, other tobacco product, uncomplicated
CPT/HCPCS: 71046; 87804; 99284; J7512

== ENCOUNTER 2018-09-07 23:10 | Inpatient (IN) | payer OTHER, SELFPAY ==
--- OUTSIDE RECORDS SUMMARY | 2018-09-07 23:12 | XMS REPORT ---
:1980 [facility] Address [address] [place] [address] Care Team Providers Name Role Phone Unavailable Unavailable Unavailable Problems This patient has no known problems. Allergies, Adverse Reactions, Alerts This patient has no known allergies or adverse reactions. Medications This patient has no known medications.
[2018-09-07] MEDS ORDERED: NA CHLORIDE 0.9% 1,000 ML ONE (23:48)
[2018-09-07] MEDS ORDERED: ALBUTEROL 2.5 MG/3 ML NEB SOL ONE (23:48)
[2018-09-07] MEDS ORDERED: IPRATROPIUM BROM 0.5MG/2.5ML ONE (23:48)
[2018-09-07] MEDS ORDERED: METHYLPREDNISOLONE 125 MG INJ ONE (23:48)
--- NOTE | 2018-09-08 00:01 | ER ---
Nurse's Notes [facility] Name: Brittany Johnson Age: 38 yrs Sex: Female : 1980 Arrival Date: 09/07/2018 Time: 23:11 Bed 6 Private MD: Diagnosis: Dyspnea;Weakness;Pneumonia due to other specified bacteria;Hypoxemia;Obesity, unspecified Presentation: 09/07 23:22 Presenting complaint: Patient states: cough, congestion and fever X3 days. pt not ak1 currently taking any OOC meds. pt had albuterol neb treatment at 1700 today. Transition of care: patient was not received from another setting of care. Onset of symptoms is unknown. Risk Assessment: Do you want to hurt yourself or someone else? Patient reports no desire to harm self or others. Initial Sepsis Screen:. Care prior to arrival: None. 23:22 Method Of Arrival: Wheelchair ak1 23:22 Acuity: YASEMIN 3 ak1 23:45 Initial Sepsis Screen: Does the patient meet any 2 criteria? RR > 20 per min. HR > 90 lp1 bpm. Yes Does the patient have a suspected source of infection? Yes: Productive cough/pneumonia If YES to both, name of provider notified: Landry Lombardi MD Triage Assessment: 23:24 General: Appears uncomfortable, obese, Behavior is calm, cooperative. 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 - Social history:: Smoking status: Patient uses tobacco products, smokes one pack cigarettes per day. - Ebola Screening: : No symptoms or risks identified at this time. - Family history:: not pertinent. Screenin/26 00:20 Abuse screen: Denies threats or abuse. Denies injuries from another. Nutritional lp1 screening: No deficits noted. Tuberculosis screening: No symptoms or risk factors identified. Fall Risk None identified. Assessment: 09/07 23:45 General: Appears uncomfortable, Behavior is calm, cooperative, appropriate for age. lp1 Pain: Complains of pain in chest. Neuro: Level of Consciousness is awake, alert, obeys commands, Oriented to person, place, time, situation. Cardiovascular: Patient's skin is warm and dry. Rhythm is sinus rhythm. Respiratory: Reports shortness of breath cough that is labored breathing Airway is patent Respiratory effort is even, labored, Respiratory pattern is symmetrical, Breath sounds with wheezes bilaterally. Onset: The symptoms/episode began/occurred gradually, the patient has mild shortness of breath. GI: No signs and/or symptoms were reported involving the gastrointestinal system. : No signs and/or symptoms were reported regarding the genitourinary system. EENT: No signs and/or symptoms were reported regarding the EENT system. Derm: Skin is intact, Skin is dry, Skin is normal. Musculoskeletal: Circulation, motion, and sensation intact. 09/08 01:00 Reassessment: Patient appears in no apparent distress at this time. Patient and/or lp1 family updated on plan of care and expected duration. Pain level reassessed. Patient states some relief after nebulizer. Vital Signs: 09/07 23:20 BP 120 / 76; Pulse 102; Resp 22; Temp 98.2; Pulse Ox 94% on R/A; Weight 104.33 kg (R); ak1 Height 5 ft. 7 in. (170.18 cm) (R); Pain 0/10; 09/08 00:15 BP 132 / 80; Pulse 97; Resp 25; Pulse Ox 93% on R/A; lp1 01:00 BP 117 / 67; Pulse 100; Resp 24; Pulse Ox 93% on R/A; lp1 02:00 BP 125 / 71; Pulse 90; Resp 19; Pulse Ox 94% on R/A; lp1 09/07 23:20 Body Mass Index 36.02 (104.33 kg, 170.18 cm) ak1 ED Course: 09/07 23:11 Patient arrived in ED. do 23:18 Landry Lombardi MD is Attending Physician. toby 23:20 Arm band placed on Patient placed in an exam room, on a stretcher, on pulse oximetry, ak1 Patient notified of wait time. 23:23 Triage completed. ak1 23:28 Kandi Ring RN is Primary Nurse. lp1 23:40 X-ray completed. Portable x-ray completed in exam room. Patient tolerated procedure kw well. 23:40 XRAY Chest (1 view) In Process Unspecified. EDMS 23:45 Patient has correct armband on for positive identification. Placed in gown. Bed in low lp1 position. Call light in reach. teletypesetter monitor on. Pulse ox on. NIBP on. 23:54 Bryan Dumont MD is Hospitalizing Provider. toby 09/08 00:12 Inserted saline lock: 20 gauge in right forearm, using aseptic technique. Blood oe collected. 00:20 Radiology exam delayed due to lab results not completed at this time. (BUN/Creatinine). kw1 00:36 Radiology exam delayed due to lab results not completed at this time. (BUN/Creatinine). sj 02:05 No provider procedures requiring assistance completed. Patient admitted, IV remains in lp1 place. Administered Medications: 00:12 Drug: Albuterol - atroVENT (3:1) (2.5 mg - 0.5 mg) 3 ml Route: Nebulizer; lp1 01:00 Follow up: Response: No adverse reaction; Marked relief of symptoms lp1 00:12 Drug: SOLU-Medrol 125 mg Route: IVP; Site: right forearm; lp1 01:00 Follow up: Response: No adverse reaction lp1 00:12 Drug: NS 0.9% 1000 ml Route: IV; Rate: 1 bolus; Site: right forearm; lp1 01:15 Follow up: IV Status: Completed infusion; IV Intake: 1000ml lp1 01:16 Drug: NS 0.9% 1000 ml Route: IV; Rate: 125 ml/hr; Site: right forearm; jd3 02:04 Follow up: IV Status: Infusion continued upon admission lp1 01:17 Drug: Rocephin 2 grams Route: IV; Rate: per protocol; Site: right forearm; jd3 02:02 Follow up: IV Status: Completed infusion; IV Intake: 100ml lp1 02:00 Drug: Zithromax 500 mg Route: IVPB; Infused Over: 1 hrs; Site: right forearm; lp1 02:04 Follow up: IV Status: Infusion continued upon admission lp1 Intake: 01:15 IV: 1000ml; Total: 1000ml. lp1 02:02 IV: 100ml; Total: 1100ml. lp1 Outcome: 00:00 Decision to Hospitalize by Provider. toby 01:00 Condition: stable lp1 01:00 Instructed on the need for admit. 02:16 Admitted to Med/surg accompanied by tech, via wheelchair, room 217, with chart, Report ak1 called to Janette ARMSTRONG 03:00 Patient left the ED. lp1 Signatures: Dispatcher [employer] EDMS Landry Lombardi MD MD cha Jones, Lena Cardona Laura RN RN lp1 Kia Bone RN RN ak1 Joanna Vizcarra, Danie Martinez RN RN jax Arnold, Ce warner Corrections: (The following items were deleted from the chart) 00:21 04 23:45 Respiratory: Reports shortness of breath cough that is labored breathing lp1 Airway is patent Respiratory effort is even, labored, Respiratory pattern is symmetrical, Breath sounds with wheezes bilaterally. the patient has mild shortness of breath lp1 09/08 03:24 03:22 Patient left the ED. lp1 lp1
--- NOTE | 2018-09-08 00:01 | EDPHYS ---
Physician Documentation [facility] Name: Brittany Johnson Age: 38 yrs Sex: Female : 1980 Arrival Date: 09/07/2018 Time: 23:11 Bed 6 Private MD: ED Physician Landry Lombardi HPI: 09/07 23:28 This 38 yrs old Female presents to ER via Wheelchair with complaints of toby Breathing Difficulty, Fever. 23:28 The patient has shortness of breath at rest, with light activity. Onset: The toby symptoms/episode began/occurred 7 day(s) ago. Duration: The symptoms are chronic. The patient's shortness of breath has no apparent modifying factors. Associated signs and symptoms: Pertinent positives: productive cough, fever. Severity of symptoms: At their worst the symptoms were mild moderate in the emergency department the symptoms are unchanged. The patient has experienced similar episodes in the past, multiple times. 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 - Social history:: Smoking status: Patient uses tobacco products, smokes one pack cigarettes per day. - Ebola Screening: : No symptoms or risks identified at this time. - Family history:: not pertinent. ROS: 23:28 Constitutional: Negative for fever, chills, and weight loss, Eyes: Negative for injury, toby pain, redness, and discharge, ENT: Negative for injury, pain, and discharge, Neck: Negative for injury, pain, and swelling, Cardiovascular: Negative for chest pain, palpitations, and edema, Abdomen/GI: Negative for abdominal pain, nausea, vomiting, diarrhea, and constipation, Back: Negative for injury and pain, : Negative for injury, bleeding, discharge, and swelling, MS/Extremity: Negative for injury and deformity, Skin: Negative for injury, rash, and discoloration, Neuro: Negative for headache, weakness, numbness, tingling, and seizure, Psych: Negative for depression, anxiety, suicide ideation, homicidal ideation, and hallucinations, Allergy/Immunology: Negative for hives, rash, and allergies, Endocrine: Negative for neck swelling, polydipsia, polyuria, polyphagia, and marked weight changes, Hematologic/Lymphatic: Negative for swollen nodes, abnormal bleeding, and unusual bruising. 23:28 Respiratory: Positive for cough, shortness of breath, wheezing, inspiratory, expiratory. Exam: 23:28 Constitutional: This is a well developed, well nourished patient who is awake, alert, toby and in no acute distress. Head/Face: Normocephalic, atraumatic. Eyes: Pupils equal round and reactive to light, extra-ocular motions intact. Lids and lashes normal. Conjunctiva and sclera are non-icteric and not injected. Cornea within normal limits. Periorbital areas with no swelling, redness, or edema. ENT: Nares patent. No nasal discharge, no septal abnormalities noted. Tympanic membranes are normal and external auditory canals are clear. Oropharynx with no redness, swelling, or masses, exudates, or evidence of obstruction, uvula midline. Mucous membranes moist. Neck: Trachea midline, no thyromegaly or masses palpated, and no cervical lymphadenopathy. Supple, full range of motion without nuchal rigidity, or vertebral point tenderness. No Meningismus. Chest/axilla: Normal chest wall appearance and motion. Nontender with no deformity. No lesions are appreciated. Abdomen/GI: Soft, non-tender, with normal bowel sounds. No distension or tympany. No guarding or rebound. No evidence of tenderness throughout. Back: No spinal tenderness. No costovertebral tenderness. Full range of motion. Skin: Warm, dry with normal turgor. Normal color with no rashes, no lesions, and no evidence of cellulitis. MS/ Extremity: Pulses equal, no cyanosis. Neurovascular intact. Full, normal range of motion. Neuro: Awake and alert, GCS 15, oriented to person, place, time, and situation. Cranial nerves II-XII grossly intact. Motor strength 5/5 in all extremities. Sensory grossly intact. Cerebellar exam normal. Normal gait. Psych: Awake, alert, with orientation to person, place and time. Behavior, mood, and affect are within normal limits. 23:28 Cardiovascular: Rate: tachycardic, Rhythm: regular, Pulses: Pulses are 4+ in bilateral radial, brachial, femoral, popliteal, posterior tibial and and dorsalis pedis arteries.. Heart sounds: normal, Edema: is not appreciated, JVD: is not appreciated. Vital Signs: 23:20 BP 120 / 76; Pulse 102; Resp 22; Temp 98.2; Pulse Ox 94% on R/A; Weight 104.33 kg (R); ak1 Height 5 ft. 7 in. (170.18 cm) (R); Pain 0/10; 09/08 00:15 BP 132 / 80; Pulse 97; Resp 25; Pulse Ox 93% on R/A; lp1 01:00 BP 117 / 67; Pulse 100; Resp 24; Pulse Ox 93% on R/A; lp1 02:00 BP 125 / 71; Pulse 90; Resp 19; Pulse Ox 94% on R/A; lp1 09/07 23:20 Body Mass Index 36.02 (104.33 kg, 170.18 cm) ak1 MDM: 09/07 23:18 Patient medically screened. [facility] 09/07 23:28 Order name: Basic Metabolic Panel [facility] 09/07 23:28 Order name: CBC with Diff; Complete Time: 01:32 [facility] 09/07 23:28 Order name: LFT's; Complete Time: 01:32 [facility] 09/07 23:28 Order name: Magnesium; Complete Time: 01:32 [facility] 09/07 23:28 Order name: NT PRO-BNP; Complete Time: 01:32 [facility] 09/07 23:28 Order name: PT-INR; Complete Time: 01:32 [facility] 09/07 23:28 Order name: Troponin (emerg Dept Use Only); Complete Time: 01:32 [facility] 09/07 23:28 Order name: Blood Culture Adult (2) [facility] 09/07 23:28 Order name: Procalcitonin; Complete Time: 01:32 [facility] 09/07 23:28 Order name: Basic Metabolic Panel; Complete Time: 01:32 [facility] 09/07 23:46 Order name: Urine Dipstick--Ancillary (enter results) 09/08 00:55 Order name: CBC with Automated Diff [facility] 09/08 00:55 Order name: Comprehensive Metabolic Panel [facility] 09/08 00:55 Order name: Lipid Profile [facility] 09/07 23:28 Order name: XRAY Chest (1 view) [facility] 09/07 23:28 Order name: EKG; Complete Time: 23:29 [facility] 09/07 23:28 Order name: Cardiac monitoring; Complete Time: 00:18 [facility] 09/07 23:28 Order name: EKG - Nurse/Tech; Complete Time: 00:18 [facility] 09/07 23:28 Order name: CT Chest For PE Angio [facility] 09/08 00:55 Order name: Regular [facility] 09/08 00:55 Order name: Magnesium [facility] 09/08 00:55 Order name: Phosphorus [facility] 09/08 00:55 Order name: NT PRO-BNP [facility] 09/08 00:55 Order name: Troponin I [facility] 09/07 23:28 Order name: IV Saline Lock; Complete Time: 00:18 [facility] 09/07 23:28 Order name: Labs collected and sent; Complete Time: 00:18 [facility] 09/07 23:28 Order name: O2 Per Protocol; Complete Time: 00:22 [facility] 09/07 23:28 Order name: O2 Sat Monitoring; Complete Time: 00:22 [facility] Administered Medications: 09/08 00:12 Drug: Albuterol - atroVENT (3:1) (2.5 mg - 0.5 mg) 3 ml Route: Nebulizer; lp1 01:00 Follow up: Response: No adverse reaction; Marked relief of symptoms lp1 00:12 Drug: SOLU-Medrol 125 mg Route: IVP; Site: right forearm; lp1 01:00 Follow up: Response: No adverse reaction lp1 00:12 Drug: NS 0.9% 1000 ml Route: IV; Rate: 1 bolus; Site: right forearm; lp1 01:15 Follow up: IV Status: Completed infusion; IV Intake: 1000ml lp1 01:16 Drug: NS 0.9% 1000 ml Route: IV; Rate: 125 ml/hr; Site: right forearm; jd3 02:04 Follow up: IV Status: Infusion continued upon admission lp1 01:17 Drug: Rocephin 2 grams Route: IV; Rate: per protocol; Site: right forearm; jd3 02:02 Follow up: IV Status: Completed infusion; IV Intake: 100ml lp1 02:00 Drug: Zithromax 500 mg Route: IVPB; Infused Over: 1 hrs; Site: right forearm; lp1 02:04 Follow up: IV Status: Infusion continued upon admission lp1 Disposition: 09/08/18 00:00 Hospitalization ordered by Bryan Dumont for Inpatient Admission. Preliminary diagnosis are Dyspnea, Weakness, Pneumonia due to other specified bacteria, Hypoxemia, Obesity, unspecified. - Bed requested for Telemetry/MedSurg (Inpatient). - Status is Inpatient Admission. lp1 - Condition is Fair. - Problem is new. - Symptoms have improved. UTI on Admission? No Signatures: Dispatcher [employer] EDMS Lindsey Workman RN RN Landry Figueroa MD MD cha Pena, Laura RN RN lp1 Kia Bone RN RN ak1 Danie Lees RN RN jd3 Corrections: (The following items were deleted from the chart) 01:15 00:00 Hospitalization Ordered by Bryan Dumont MD for Inpatient Admission. Preliminary diagnosis is Dyspnea; Weakness; Pneumonia due to other specified bacteria; Hypoxemia; Obesity, unspecified. Bed requested for Telemetry/MedSurg (Inpatient). Status is Inpatient Admission. Condition is Fair. Problem is new. Symptoms have improved. UTI on Admission? No. toby 03:22 01:15 09/08/2018 00:00 Hospitalization Ordered by Bryan Dumont MD for Inpatient lp1 Admission. Preliminary diagnosis is Dyspnea; Weakness; Pneumonia due to other specified bacteria; Hypoxemia; Obesity, unspecified. Bed requested for Telemetry/MedSurg (Inpatient). Status is Inpatient Admission. Condition is Fair. Problem is new. Symptoms have improved. UTI on Admission? No. mw
[2018-09-08 00:16] LABS: Urine Blood TRACE (NEG); Urine Glucose NEGATIVE (NEG); Urine Protein 2+ (NEG); Urine Specific Gravity 1.015 (1.005-1.030)
[2018-09-08 00:27] LABS: Absolute Lymphocytes (CBC) 2.2 K/uL (0.7-4.9); Absolute Monocytes 0.8 K/uL (0.1-1.3); Absolute Neutrophil 8.1 K/uL (1.8-8.0); Basophils % 0.6 % (0-1.3); Eosinophils % 2.1 % (0-4.4); Hematocrit 36.1 % (36.0-45.0); Lymphocytes % 19.3 % (15.3-44.8); MPV 8.3 fL (7.6-11.3); Monocytes % 7.2 % (3.3-12.3); RBC Red Blood Cell Count 4.87 M/uL (3.86-4.86)
[2018-09-08 00:28] LABS: Protime INR 1.21
[2018-09-08 00:44] LABS: ALT/SGPT 24 U/L (12-78); AST/SGOT 15 U/L (15-37); Albumin 3.2 g/dL (3.4-5.0); Alkaline Phosphatase 99 U/L (45-117); BUN Blood Urea Nitrogen 6 mg/dL (7-18); Bicarbonate 25 mmol/L (21-32); Bilirubin Direct 0.1 mg/dL (0-0.2); Bilirubin Total 0.5 mg/dL (0.2-1.0); Glucose Level 119 mg/dL (74-106); Magnesium 1.8 mg/dL (1.8-2.4); NT PRO-BNP 12 pg/mL (<125); Potassium 3.6 mmol/L (3.5-5.1); Protein, Total 7.5 g/dL (6.4-8.2); Sodium Level 139 mmol/L (136-145); Troponin (Emerg Dept Use Only) < 0.02 ng/mL (0.0-0.045)
[2018-09-08] MEDS ORDERED: CEFTRIAXONE 1000 MG/VIAL ONE (00:48)
[2018-09-08] MEDS ORDERED: AZITHROMYCIN 500 MG INJ IVPB ONE (00:49)
[2018-09-08] MEDS ORDERED: NA CHLORIDE 0.9% 1,000 ML ONE (00:49)
[2018-09-08] MEDS ORDERED: NA CHLORIDE 0.9% 250 ML ONE (00:49)
[2018-09-08] MEDS ORDERED: NA CHLORIDE 0.9% 100 ML IV ONE (00:49)
[2018-09-08] MEDS ORDERED: ACETAMINOPHEN 500 MG TAB PO PRN (00:50)
[2018-09-08] MEDS ORDERED: ALBUTEROL 2.5 MG/3 ML NEB SOL NEB PRN ×2 (00:50→11:55)
[2018-09-08] MEDS: NA CHLORIDE 0.9% 1,000 ML IV SCH ×3 (01:00→11:49)
[2018-09-08] MEDS: GUAIFENESIN/CODEINE 5ML UCUP PO PRN ×2 (05:43→20:32)
[2018-09-08 05:54] LABS: Absolute Monocytes 0.1 K/uL (0.1-1.3); Absolute Neutrophil 10.5 K/uL (1.8-8.0); Basophils % 0.3 % (0-1.3); Eosinophils % 0.1 % (0-4.4); Lymphocytes % 8.4 % (15.3-44.8); MPV 8.2 fL (7.6-11.3); Monocytes % 1.1 % (3.3-12.3); RBC Red Blood Cell Count 4.96 M/uL (3.86-4.86)
[2018-09-08] MEDS: ALBUTEROL 2.5 MG/3 ML NEB SOL NEB SCH ×2 (06:00→07:42)
[2018-09-08] MEDS ORDERED: METHYLPREDNISOLONE 125 MG INJ IV SCH (06:00)
[2018-09-08 06:07] LABS: Albumin 3.1 g/dL (3.4-5.0); Bilirubin Total 0.3 mg/dL (0.2-1.0); Magnesium 1.9 mg/dL (1.8-2.4); Phosphorus 2.5 mg/dL (2.5-4.9); Protein, Total 7.6 g/dL (6.4-8.2)
[2018-09-08 06:41] LABS: Blood Morphology Comment NOT SEEN (NOT SEEN); Platelet Estimate ADEQ; Urine White Blood Cell Casts OK
--- NOTE | 2018-09-08 06:42 | EKG ---
Test Date: 2018-09-07 Test Time: 23:50:14 Hand Icer: KARLI MEASUREMENT RESULTS: Intervals: Rate: 101 CO: 140 QRSD: 82 QT: 340 QTc: 440 [place]: P: 65 CO: 140 QRS: 19 T: 40 INTERPRETIVE STATEMENTS: Sinus tachycardia Otherwise normal ECG No previous ECG available for comparison Electronically Signed On 09-08-18 06:42:06 CDT by Venancio Lao
--- NOTE | 2018-09-08 07:59 | RAD REPORT ---
EXAM DESCRIPTION: RAD - Chest Single View - 09/07/2018 11:40 pm CLINICAL HISTORY: Cough and congestion, fever COMPARISON: March 2018 TECHNIQUE: AP portable chest image was obtained 2332 hour . FINDINGS: No focal consolidation or mass. Lung markings are prominent. This pattern is not substanti ally different. This could be baseline lung disease or represent interstitial edema/ infiltrate simil ar to a prior study. Heart and vasculature are normal. No measurable pleural effusion and no pneumoth orax. No acute bony abnormality seen. No acute aortic findings suspected. IMPRESSION: No focal consolidation to suspect for localize a bacterial pneumonia. Prominent interstitial markings are similar to comparison. Interstitial edema or infiltrate can be ma sked.
--- NOTE | 2018-09-08 08:06 | P.HP ---
Certification for Inpatient Patient admitted to: Inpatient With expected LOS: >2 Midnights Patient will require the following post-hospital care: None Practitioner: I am a practitioner with admitting privileges, knowledge of patient current condition, hospital course, and medical plan of care. Services: Services provided to patient in accordance with Admission requirements found in Title 42 Section 412.3 of the Code of Federal Regulations Patient History Date of Service: 09/07/18 Reason for admission: Pneumonia History of Present Illness: Patient is a 38-year-old female who came to the hospital with fever, shakes, and chills. She has been feeling poorly for the last few days. Her clinical condition has worsened so she came into the ER. Her workup in the emergency room revealed a right lower lobe pneumonia. Patient has been short of breath throughout the day. Should patient was also hypoxic in the emergency room. Patient was started on IV antibiotics along with nebulizer treatments. Will also start IV steroids and cough suppressant. Patient states she has never felt this bad in her life. At this time, I will continue with current plan of care along with current workup. 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 moist/pink, EOMI, Sclerae nonicteric Neck: Supple, 2+ carotid pulse no bruit, No LAD, Without JVD or thyroid abnormality Respiratory: Diminished, Expiratory wheezes, Rhonchi/gurgles Cardiovascular: Regular rate/rhythm, Normal S1 S2 Gastrointestinal: Normal bowel sounds, Soft and benign, Non-distended, No tenderness Musculoskeletal: No clubbing, No swelling, No tenderness Integumentary: No rashes Neurological: Normal gait, Normal speech, Normal strength at 5/5 x4 extr, Normal tone, Sensation intact, Cranial nerves 3-12 intact ( The ), Normal affect Lymphatics: No axilla or inguinal lymphadenopathy - Studies Laboratory Data (last 24 hrs) 09/07/18 23:59: PT 14.2 H, INR 1.21 09/07/18 23:59: WBC 11.4 H, Hgb 11.5 L, Hct 36.1, Plt Count 246 09/07/18 23:59: Sodium 139, Potassium 3.6, BUN 6 L, Creatinine 0.47 L, Glucose 119 H, Magnesium 1.8, Total Bilirubin 0.5, AST 15, ALT 24, Alkaline Phosphatase 99 Assessment & Plan - Problems (Diagnosis) (1) Pneumonia Current Visit: Yes Status: Acute Qualifiers: Pneumonia type: aspiration pneumonia - Plan Plan: 1. Continue with IV antibiotics 2. Awaiting sputum and blood culture; procalcitonin level 3. Repeat chest x-ray in AM 4. CT scan of the chest is spending 5. Steroids, and cough suppressant 6. Continue with nebs as needed 7. O2 per protocol 8. Continue with gentle hydration 9. Repeat labs including CBC and renal function in a.m. 10. Outpt follow-up with Pulmonary 11. GI and DVT prophylaxis Discharge Plan: Home Plan to discharge in: Greater than 2 days - Advance Directives Does patient have a Living Will: No Does patient have a Durable POA for Healthcare: No - Code Status/Comfort Care Code Status Assessed: Yes Code Status: Full Code Critical Care: No Time Spent Managing PTS Care (In Minutes): 45
[2018-09-08] MEDS ORDERED: AZITHROMYCIN IV 500 MG in NA CHLORIDE 0.9% 250 ML IVPB SCH (09:00)
[2018-09-08] MEDS ORDERED: CEFTRIAXONE 1 GM/NS 50 ML 1 GM/50 ML BAG IV SCH (09:00)
[2018-09-08] MEDS: ENOXAPARIN 40 MG/0.4 ML SQ SCH (09:57)
[2018-09-08] MEDS ORDERED: IPRATROPIUM BROM 0.5MG/2.5ML NEB PRN (11:13)
--- NOTE | 2018-09-08 11:59 | P.CNS ---
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 - Family History Mother History Unknown: Yes Medical History: Hypertension, Diabetes, Cancer Notes: bipolar - Social History Smoking Status: Current every day smoker Alcohol use: No CD- Drugs: No Caffeine use: Yes Place of Residence: Home Review of Systems 10-point ROS is otherwise unremarkable Physical Examination Temp Pulse Resp BP Pulse Ox 98.9 F 106 H 22 H 116/74 93 09/08/18 08:06 09/08/18 08:06 09/08/18 08:06 09/08/18 08:06 09/08/18 08:06 General: Alert, Oriented x3 Neck: Supple Respiratory: Clear to auscultation bilaterally Cardiovascular: No edema, Regular rate/rhythm Gastrointestinal: Normal bowel sounds, Soft and benign Laboratory Data (last 24 hrs) 09/07/18 23:59: PT 14.2 H, INR 1.21 09/07/18 23:59: WBC 11.4 H, Hgb 11.5 L, Hct 36.1, Plt Count 246 09/07/18 23:59: Sodium 139, Potassium 3.6, BUN 6 L, Creatinine 0.47 L, Glucose 119 H, Magnesium 1.8, Total Bilirubin 0.5, AST 15, ALT 24, Alkaline Phosphatase 99 - Problems (1) Pneumonia Current Visit: Yes Status: Acute Plan: Patient is 38 years of age admitted with 3 day history of worsening dyspnea bilateral ground-glass changes very heavy smoker no other medical history presumed underlying COPD labs reviewed mildly elevated white count continue with Rocephin change to p.o. Zithromax continue with steroids Dc IV fluids room- air oxygenation is satisfactory can discharge home tomorrow on a bronchodilator and prednisone pro calcitonin level was negative can send her home on some [employer] console to stops smoking follow up with me khoury as an outpatient in about 2 weeks Qualifiers: Pneumonia type: due to unspecified organism
--- NOTE | 2018-09-08 12:22 | RAD REPORT ---
EXAM DESCRIPTION: CT - Chest For Pe Angio - 09/08/2018 3:41 am CLINICAL HISTORY: Cough;COPD;Congestion COMPARISON: None. TECHNIQUE: CT CHEST ANGIOGRAPHY WITH IV CONTRAST on 09/07/2018 11:28 PM CDT. MIPS reconstructions wer e generated. This exam was performed according to our departmental dose-optimization program, which includes autom ated exposure control, adjustment of the mA and/or kV according to patient size and/or use of iterati ve reconstruction technique. MIP images were generated. FINDINGS: Thoracic aorta is normal in course and caliber without aneurysm or dissection. Pulmonary a rteries are adequately opacified without acute or chronic filling defects. The heart is normal in size. There is no pericardial effusion. There are several borderline right par atracheal and subcarinal lymph nodes. Bilateral hilar lymph nodes are also borderline in size. There is no pleural effusion, pleural thickening or pneumothorax. Central airways are patent. There a re patchy groundglass opacities scattered throughout both lungs, with right upper lobe predominance. There are no acute abnormalities within the limited images of the upper abdomen. There are no acute osseous findings. No suspicious bony lesions. IMPRESSION: No aortic dissection or aneurysm. No pulmonary embolus. Probable scattered areas of pneumonia, especially in the right upper lobe. Electronically signed by: Aditya Ruggiero MD 09/08/2018 1:29 AM CDT Due to temporary technical issues with the PACS/Fluency reporting system, reports are being signed by the in house radiologist as a courtesy to ensure prompt reporting. The interpreting radiologist is f ully responsible for the content of the report.
[2018-09-08] MEDS: IPRATROPIUM BROM 0.5MG/2.5ML NEB SCH ×2 (13:46→20:00)
[2018-09-08] MEDS ORDERED: CEFTRIAXONE/SWI 1gm 1 GM/10 ML SYR IV SCH (17:00)
[2018-09-08] MEDS: NICOTINE 7 MG/PAT TD SCH ×2 (17:21→23:48)
[2018-09-08] MEDS: predniSONE 20 MG TAB PO SCH (20:05)
[2018-09-08] MEDS: DULERA 200/5 (MOMETASONE/FORMOTEROL) INHALER IH SCH (21:00)
[2018-09-09] MEDS: IPRATROPIUM BROM 0.5MG/2.5ML NEB SCH ×4 (02:00→20:00)
[2018-09-09] MEDS ORDERED: AZITHROMYCIN IV 500 MG in NA CHLORIDE 0.9% 250 ML IVPB SCH (05:00)
[2018-09-09] MEDS: ENOXAPARIN 40 MG/0.4 ML SQ SCH (08:47)
[2018-09-09] MEDS: AZITHROMYCIN 250 MG TAB PO SCH (08:47)
[2018-09-09] MEDS: predniSONE 20 MG TAB PO SCH ×2 (08:47→20:50)
[2018-09-09] MEDS: DULERA 200/5 (MOMETASONE/FORMOTEROL) INHALER IH SCH ×3 (09:00→20:50)
[2018-09-09 10:52] LABS: Absolute Monocytes 0.7 K/uL (0.1-1.3); Absolute Neutrophil 12.9 K/uL (1.8-8.0); Basophils % 0.2 % (0-1.3); Eosinophils % 0.1 % (0-4.4); Hematocrit 35.3 % (36.0-45.0); Lymphocytes % 13.1 % (15.3-44.8); MPV 8.2 fL (7.6-11.3); Monocytes % 4.2 % (3.3-12.3); RBC Red Blood Cell Count 4.68 M/uL (3.86-4.86)
[2018-09-09 11:03] LABS: ALT/SGPT 23 U/L (12-78); AST/SGOT 12 U/L (15-37); Albumin 2.9 g/dL (3.4-5.0); Alkaline Phosphatase 100 U/L (45-117); BUN Blood Urea Nitrogen 8 mg/dL (7-18); Bicarbonate 26 mmol/L (21-32); Bilirubin Total 0.2 mg/dL (0.2-1.0); Glucose Level 215 mg/dL (74-106); Potassium 4.2 mmol/L (3.5-5.1); Protein, Total 6.9 g/dL (6.4-8.2); Sodium Level 143 mmol/L (136-145)
--- NOTE | 2018-09-09 12:48 | P.PN ---
Subjective Date of Service: 09/09/18 Chief Complaint: Pneumonia Patient seen and examined at bedside with RN. Chart reviewed. Case discussed with pulmonology at this time. Complains of having some generalized weakness and still feeling sick. Complains of having some cough and congestion this morning as well. Denies having any fever chills nausea vomiting Review of Systems 10-point ROS is otherwise unremarkable Physical Examination - Vital Signs Temperature: 97.6 F Blood Pressure: 128/70 Pulse: 76 Respirations: 18 Pulse Ox (%): 96 - Physical Exam General: Alert, In no apparent distress HEENT: Atraumatic, PERRLA, EOMI Neck: Supple, JVD not distended Respiratory: Normal air movement, Expiratory wheezes, Inspiratory wheezes Cardiovascular: Regular rate/rhythm, Normal S1 S2 Gastrointestinal: Normal bowel sounds, No tenderness Musculoskeletal: No tenderness Integumentary: No rashes Neurological: Normal speech, Normal tone, Normal affect Lymphatics: No axilla or inguinal lymphadenopathy - Studies Medications List Reviewed: Yes Assessment And Plan - Current Problems (Diagnosis) (1) COPD exacerbation Current Visit: Yes Status: Acute Plan: COPD exacerbation most likely secondary to pneumonia. Pro calcitonin negative. Lactic acid elevated. -sputum culture pending at this time -duo nebs, steroids, oxygen, antibiotics for now. -will follow up with culture and deescalate the antibiotics if negative. (2) Pneumonia Current Visit: Yes Status: Acute Plan: Chest CT concerning with pneumonia versus ground-glass opacity Pro calcitonin negative lactic acid however elevated. -sputum cultures pending at this time. Will continue antibiotics until sputum culture results. - Qualifiers: Pneumonia type: due to unspecified organism Laterality: right Lung location: lower lobe of lung Qualified Code(s): J18.1 - Lobar pneumonia, unspecified organism (3) Smoker Current Visit: Yes Status: Acute Plan: Educated extensively on smoking cessation more than 30 min - Plan Pending clinical improvement at this time. Patient complaining of having some generalized weakness. CT has been consulted. Will continue with IV antibiotics and sputum culture results. Will continue with DuoNeb steroids and oxygen here in the hospital as well. Discharge Plan: Home Plan to discharge in: Greater than 2 days - Code Status/Comfort Care Code Status Assessed: Yes Critical Care: No
[2018-09-09] MEDS: NICOTINE 7 MG/PAT TD SCH (20:57)
[2018-09-10] MEDS: IPRATROPIUM BROM 0.5MG/2.5ML NEB SCH ×4 (02:00→19:29)
[2018-09-10] MEDS: NICOTINE 7 MG/PAT TD SCH ×2 (09:00→21:10)
[2018-09-10] MEDS: predniSONE 20 MG TAB PO SCH ×2 (09:04→21:09)
[2018-09-10] MEDS: DULERA 200/5 (MOMETASONE/FORMOTEROL) INHALER IH SCH ×2 (09:04→21:10)
[2018-09-10] MEDS: AZITHROMYCIN 250 MG TAB PO SCH (09:04)
[2018-09-10] MEDS: ENOXAPARIN 40 MG/0.4 ML SQ SCH (09:04)
--- NOTE | 2018-09-10 09:57 | P.PN ---
Subjective Date of Service: 09/10/18 Chief Complaint: Pneumonia Patient seen and examined at bedside with RN. Chart reviewed. Case discussed with pulmonology at this time. Complains of having body ache. Complains of having some cough and congestion this morning as well, improvement today . Denies having any fever chills nausea vomiting Review of Systems 10-point ROS is otherwise unremarkable Physical Examination - Vital Signs Temperature: 97.3 F Blood Pressure: 119/61 Pulse: 86 Respirations: 18 Pulse Ox (%): 92 - Physical Exam General: Alert, In no apparent distress HEENT: Atraumatic, PERRLA, EOMI Neck: Supple, JVD not distended Respiratory: Normal air movement, Crackles/rales, Rhonchi/gurgles Cardiovascular: Regular rate/rhythm, Normal S1 S2 Gastrointestinal: Normal bowel sounds, No tenderness Musculoskeletal: No tenderness Integumentary: No rashes Neurological: Normal speech, Normal tone, Normal affect Lymphatics: No axilla or inguinal lymphadenopathy - Studies Medications List Reviewed: Yes Assessment And Plan - Current Problems (Diagnosis) (1) COPD exacerbation Current Visit: Yes Status: Acute Plan: COPD exacerbation most likely secondary to pneumonia. Pro calcitonin negative. Lactic acid elevated today. -sputum culture negative thus far. -duo nebs, steroids, oxygen, antibiotics for now. (2) Pneumonia Current Visit: Yes Status: Acute Plan: Chest CT concerning with pneumonia versus ground-glass opacity Pro calcitonin negative lactic acid however elevated. -sputum cultures pending at this time. -Will continue antibiotics until sputum culture results. -Switched to Levaquin from Azithromycin today due to Increasing LA -Elevated WBC possibly 2.2 to Steroids Qualifiers: Pneumonia type: due to unspecified organism Laterality: right Lung location: lower lobe of lung Qualified Code(s): J18.1 - Lobar pneumonia, unspecified organism (3) Smoker Current Visit: Yes Status: Acute Plan: Educated extensively on smoking cessation more than 30 min - Plan Pending clinical improvement at this time. Patient complaining of having some generalized weakness. CT has been consulted. Will continue with IV antibiotics and sputum culture results. Will continue with DuoNeb steroids and oxygen here in the hospital as well. Discharge Plan: Home Plan to discharge in: 48 Hours - Code Status/Comfort Care Code Status Assessed: Yes Critical Care: No
[2018-09-10] MEDS: Levofloxacin500mg IV 500 MG/100 ML BAG IV SCH (11:02)
--- NOTE | 2018-09-10 23:07 | RAD REPORT ---
EXAM DESCRIPTION: RAD - Chest Pa And Lat (2 Views) - 09/10/2018 10:04 pm CLINICAL HISTORY: follow up COPD/Pneumonia Chest pain. COMPARISON: Chest Single View dated 09/07/2018; Chest Pa And Lat (2 Views) dated 03/26/2018; Chest Fo r Pe Angio dated 09/08/2018 FINDINGS: The lungs are mildly improved in aeration since the comparative study with mild prominence of the pulmonary interstitium again noted. No focal consolidation typical of pneumonia seen. The hea rt is normal in size. No displaced fractures. IMPRESSION: Mild improvement in lung aeration since comparative study. No focal consolidation to indicate pneumonia.
[2018-09-11] MEDS: IPRATROPIUM BROM 0.5MG/2.5ML NEB SCH ×2 (02:00→08:35)
[2018-09-11 06:10] LABS: Absolute Lymphocytes (CBC) 2.3 K/uL (0.7-4.9); Absolute Monocytes 0.6 K/uL (0.1-1.3); Absolute Neutrophil 10.4 K/uL (1.8-8.0); Basophils % 0.5 % (0-1.3); Eosinophils % 0.2 % (0-4.4); Hematocrit 35.7 % (36.0-45.0); Lymphocytes % 17.4 % (15.3-44.8); MPV 8.1 fL (7.6-11.3); Monocytes % 4.2 % (3.3-12.3); RBC Red Blood Cell Count 4.78 M/uL (3.86-4.86)
[2018-09-11 06:21] LABS: ALT/SGPT 32 U/L (12-78); AST/SGOT 20 U/L (15-37); Alkaline Phosphatase 111 U/L (45-117); BUN Blood Urea Nitrogen 9 mg/dL (7-18); Bicarbonate 27 mmol/L (21-32); Bilirubin Total 0.2 mg/dL (0.2-1.0); Glucose Level 232 mg/dL (74-106); Magnesium 1.9 mg/dL (1.8-2.4); Potassium 4.3 mmol/L (3.5-5.1); Protein, Total 6.9 g/dL (6.4-8.2); Sodium Level 141 mmol/L (136-145)
--- NOTE | 2018-09-11 08:08 | ECHO ---
HEIGHT: 5 ft 7 in WEIGHT: 226 lb 12.8 oz DATE OF STUDY: 09/08/[address]: Ralph Connor MD 2-DIMENSIONAL: YES M.MODE: YES DOPPLER: YES COLOR FLOW: YES TDS: YES PORTABLE: NO DEFINITY: NO BUBBLE STUDY: NO DIAGNOSIS: RULE OUT CONGESTIVE HEART FAILURE CARDIAC HISTORY: CATHERIZATION: NO SURGERY: NO PROSTHETIC VALVE: NO PACEMAKER: NO MEASUREMENTS (cm) DIASTOLIC (NORMALS) SYSTOLIC (NORMALS) IVSd 0.9 (0.6-1.2) LA Diam 3.0 (1.9-4.0) LVEF 68% LVIDd 4.7 (3.5-5.7) LVIDs 2.9 (2.0-3.5) %FS 38% LVPWd 1.1 (0.6-1.2) Ao Diam 2.3 (2.0-3.7) 2 DIMENSIONAL ASSESSMENT: RIGHT ATRIUM: NORMAL LEFT ATRIUM: NORMAL RIGHT VENTRICLE: NORMAL LEFT VENTRICLE: NORMAL TRICUSPID VALVE: NORMAL MITRAL VALVE: NORMAL PULMONIC VALVE: NORMAL AORTIC VALVE: NORMAL PERICARDIAL EFFUSION: NONE AORTIC ROOT: NORMAL LEFT VENTRICULAR WALL MOTION: NORMAL. DOPPLER/COLOR FLOW: NORMAL COMMENTS: NORMAL 2D ECHOCARDIOGRAM WITH DOPPLER. NO WALL MOTION ABNORMALITY. NO EFFUSION. TECHNOLOGIST: PAXTON DOMINIQUE
[2018-09-11] MEDS: DULERA 200/5 (MOMETASONE/FORMOTEROL) INHALER IH SCH (08:50)
[2018-09-11] MEDS: ENOXAPARIN 40 MG/0.4 ML SQ SCH (08:51)
[2018-09-11] MEDS: predniSONE 20 MG TAB PO SCH (08:51)
[2018-09-11] MEDS: Levofloxacin500mg IV 500 MG/100 ML BAG IV SCH (08:52)
[2018-09-11] MEDS: NICOTINE 7 MG/PAT TD SCH (08:52)
[2018-09-11] MEDS ORDERED: FAMOTIDINE 20 MG TAB PO ONE (09:45)
[2018-09-11] MEDS ORDERED: CETIRIZINE HCL 5 MG TABLET PO ONE (09:45)
--- NOTE | 2018-09-11 12:17 | P.DS ---
Admission Date: 09/08/18 Discharge Date: 09/11/18 Primary Care Provider: none Disposition: ROUTINE DISCHARGE Discharge Condition: GOOD Reason for Admission: Pneumonia Consultations: Pulmonary-Dr. Connor Procedures: CT scan: FINDINGS: Thoracic aorta is normal in course and caliber without aneurysm or dissection. Pulmonary arteries are adequately opacified without acute or chronic filling defects. The heart is normal in size. There is no pericardial effusion. There are several borderline right paratracheal and subcarinal lymph nodes. Bilateral hilar lymph nodes are also borderline in size. There is no pleural effusion, pleural thickening or pneumothorax. Central airways are patent. There are patchy groundglass opacities scattered throughout both lungs, with right upper lobe predominance. There are no acute abnormalities within the limited images of the upper abdomen. There are no acute osseous findings. No suspicious bony lesions. IMPRESSION: No aortic dissection or aneurysm. No pulmonary embolus. Probable scattered areas of pneumonia, especially in the right upper lobe. ECHO: Ejection fraction 68% LEFT VENTRICULAR WALL MOTION: NORMAL. DOPPLER/COLOR FLOW: NORMAL COMMENTS: NORMAL 2D ECHOCARDIOGRAM WITH DOPPLER. NO WALL MOTION ABNORMALITY. NO EFFUSION. CXR: COMPARISON: Chest Single View dated 09/07/2018; Chest Pa And Lat (2 Views) dated 03/26/2018; Chest For Pe Angio dated 09/08/2018 FINDINGS: The lungs are mildly improved in aeration since the comparative study with mild prominence of the pulmonary interstitium again noted. No focal consolidation typical of pneumonia seen. The heart is normal in size. No displaced fractures. IMPRESSION: Mild improvement in lung aeration since comparative study. No focal consolidation to indicate pneumonia. Medical Problem List: Shortness of breath secondary to COPD exacerbation complicated with right upper lobe pneumonia Tobacco abuse Diabetes mellitus type 2, new diagnosis Obesity, BMI 35 Brief History of Present Illness: 38-year-old female presented emergency room with cough, congestion and shortness of breath. Patient found to have right upper lobe pneumonia and COPD exacerbation. Patient was admitted for treatment. Hospital Course: Patient presented with shortness of breath secondary to COPD exacerbation complicated with right upper lobe pneumonia. Patient was given COPD medication and antibiotic therapy. Patient did well in her stay. At discharge she is without any significant shortness of breath. Room-air saturations within normal range. Chest x-ray shows improvement. Echocardiogram unremarkable. At discharge patient will continue with Augmentin 875 mg 1 pill twice daily and Zithromax 250 mg 1 pill daily for a total of 5 more days. Patient will also be provided Airduo 1 puff twice daily and Pro air 2 puffs 3 times a day as needed for shortness of breath. Patient will continue with prednisone 5 mg 1 pill twice daily for 5 days then 1 pill once daily for 5 days. Patient will be provided education on COPD and pneumonia. Recommend to establish care with pulmonology in 2-4 weeks to monitor her progress. Patient with tobacco abuse. Recommend to discontinue tobacco. Tobacco cessation education will be provided. Patient found have elevated blood sugars. A1c 7.0. Patient with new diagnosis of diabetes mellitus type 2. Education will be provided. Recommend to continue with a 2000 ADA diet. Patient will be started on metformin 500 mg daily. Recommend to follow up with a PCP to establish care and to continue to address her diabetes. Lifestyle modification education will also be provided. Vital Signs/Physical Exam: Temp Pulse Resp BP Pulse Ox 97.6 F 65 18 119/58 L 95 09/11/18 08:00 09/11/18 08:00 09/11/18 08:00 09/11/18 08:00 09/11/18 04:00 General: Alert, In no apparent distress, Oriented x3, Cooperative HEENT: Atraumatic Neck: Supple Respiratory: Clear to auscultation bilaterally, Normal air movement Cardiovascular: Normal pulses, Regular rate/rhythm Gastrointestinal: Normal bowel sounds, Soft and benign, Non-distended, No tenderness, No masses, No rebound, No guarding Musculoskeletal: No erythema, No tenderness, No warmth Integumentary: No tenderness/swelling, No erythema, No warmth, No cyanosis Neurological: Normal speech, Normal strength at 5/5 x4 extr, Normal tone, Normal affect Laboratory Data at Discharge: WBC 13.4 K/uL (4.3-10.9) H D 09/11/18 05:37 Hgb 11.4 g/dL (12.0-15.0) L 09/11/18 05:37 Hct 35.7 % (36.0-45.0) L 09/11/18 05:37 Plt Count 301 K/uL (152-406) 09/11/18 05:37 PT 14.2 SECONDS (9.5-12.5) H 09/07/18 23:59 INR 1.21 09/07/18 23:59 Sodium 141 mmol/L (136-145) 09/11/18 05:37 Potassium 4.3 mmol/L (3.5-5.1) 09/11/18 05:37 BUN 9 mg/dL (7-18) 09/11/18 05:37 Creatinine 0.54 mg/dL (0.55-1.3) L 09/11/18 05:37 Glucose 232 mg/dL (74-106) H 09/11/18 05:37 Phosphorus 2.5 mg/dL (2.5-4.9) 09/08/18 05:34 Magnesium 1.9 mg/dL (1.8-2.4) 09/11/18 05:37 Total Bilirubin 0.2 mg/dL (0.2-1.0) 09/11/18 05:37 AST 20 U/L (15-37) 09/11/18 05:37 ALT 32 U/L (12-78) 09/11/18 05:37 Alkaline Phosphatase 111 U/L (45-117) 09/11/18 05:37 Troponin I < 0.02 ng/mL (0.0-0.045) 09/08/18 05:34 Triglycerides 104 mg/dL (<150) 09/08/18 05:34 Cholesterol 150 mg/dL (<200) 09/08/18 05:34 HDL Cholesterol 35 mg/dL (40-60) L 09/08/18 05:34 Cholesterol/HDL Ratio 4.29 09/08/18 05:34 Home Medications: Albuterol Sulfate [Proair Hfa] 2 puff IH TID PRN #1 hfa.aer.ad 09/11/18 Amoxicillin/Potassium Clav [Augmentin 875-125 Tablet] 1 each PO BID #10 tablet 09/11/18 Azithromycin Tab [Zithromax*] 250 mg PO DAILY #5 tab 09/11/18 Fluticasone/Salmeterol [Airduo Respiclick 113-14 Mcg] 1 each IH BID #1 aer.pow.ba 09/11/18 Metformin HCl 500 mg PO DAILY #30 tablet 09/11/18 predniSONE [Deltasone] 5 mg PO SEECOM #15 tab 09/11/18 New Medications: Albuterol Sulfate [Proair Hfa] 2 puff IH TID PRN #1 hfa.aer.ad PRN Reason: Shortness Of Breath Amoxicillin/Potassium Clav [Augmentin 875-125 Tablet] 1 each PO BID #10 tablet Azithromycin Tab [Zithromax*] 250 mg PO DAILY #5 tab Fluticasone/Salmeterol [Airduo Respiclick 113-14 Mcg] 1 each IH BID #1 aer.pow.ba Metformin HCl 500 mg PO DAILY #30 tablet predniSONE [Deltasone] 5 mg PO SEECOM #15 tab Patient Discharge Instructions: 1. Recommend to establish care and follow up with a PCP within 1 week. 2. Patient presented with shortness of breath secondary to COPD exacerbation complicated with right upper lobe pneumonia. Patient was given COPD medication and antibiotic therapy. Patient did well in her stay. At discharge she is without any significant shortness of breath. Room-air saturations within normal range. Chest x-ray shows improvement. Echocardiogram unremarkable. At discharge patient will continue with Augmentin 875 mg 1 pill twice daily and Zithromax 250 mg 1 pill daily for a total of 5 more days. Patient will also be provided Airduo 1 puff twice daily and Pro air 2 puffs 3 times a day as needed for shortness of breath. Patient will continue with prednisone 5 mg 1 pill twice daily for 5 days then 1 pill once daily for 5 days. Patient will be provided education on COPD and pneumonia. Recommend to establish care with pulmonology in 2-4 weeks to monitor her progress. 3. Patient with tobacco abuse. Recommend to discontinue tobacco. Tobacco cessation education will be provided. 4. Patient found have elevated blood sugars. A1c 7.0. Patient with new diagnosis of diabetes mellitus type 2. Education will be provided. Recommend to continue with a 2000 ADA diet. Patient will be started on metformin 500 mg daily. Recommend to follow up with a PCP to establish care and to continue to address her diabetes. Lifestyle modification education will also be provided. Diet: ADA Activity: Ad joaquín Time spent managing pt's care (in minutes): 55
== END 2018-09-11 13:25 | disposition home or self-care (01) | DRG 190 ==
LOC: ER 23:10 → ERHOLD 09-08 01:05 → 2ND 09-08 02:38
PROVIDERS: ADMIT Hospitalist; ATTEND Family Medicine
DX: J44.0 Chronic obstructive pulmonary disease with (acute) lower respiratory infection (principal); J18.1 Lobar pneumonia, unspecified organism; J44.1 Chronic obstructive pulmonary disease with (acute) exacerbation; F17.210 Nicotine dependence, cigarettes, uncomplicated; E11.9 Type 2 diabetes mellitus without complications; E66.9 Obesity, unspecified; Z68.35 Body mass index [BMI] 35.0-35.9, adult; Z79.51 Long term (current) use of inhaled steroids; Z91.040 Latex allergy status
CPT/HCPCS: 36415; 71045; 71046; 71275; 80048; 80053; 80061; 80076; 81003; 83036; 83605; 83735; 83880; 84100; 84145; 84484; 85025; 85610; 87040; 87070; 87205; 93005; 93306; 94640; 94760; 96361; 96365; 96375; 97161; 99285; J0456; J0696; J1650; J2930; J7030; J7512; J7606; Q9967

== ENCOUNTER 2024-01-23 19:23 | Emergency (ER) | payer OTHER, SELFPAY ==
--- NOTE | 2024-01-23 21:48 | ER ---
Nurse's Notes [facility] Name: Brittany Johnson Age: 43 yrs Sex: Female : 1980 Arrival Date: 01/23/2024 Time: 19:23 Bed IW2 Private MD: Diagnosis: Presentation: 01/22 19:48 Chief complaint: Patient states: Feeling more fatigued over the last week. Pt also cm10 reports that her right nipple is purple. Coronavirus screen: Client denies travel out of the [place] in the last 14 days. Ebola Screen: Patient denies travel to an Ebola-affected area in the 21 days before illness onset. No symptoms or risks identified at this time. Initial Sepsis Screen: Does the patient meet any 2 criteria? HR > 90 bpm. Does the patient have a suspected source of infection? No. Patient's initial sepsis screen is negative. Risk Assessment: Do you want to hurt yourself or someone else? Patient reports no desire to harm self or others. Onset of symptoms was January 23, 2024. 19:48 Method Of Arrival: Ambulatory cm10 19:48 Acuity: YASEMIN 3 cm10 Triage Assessment: 19:50 General: Appears in no apparent distress. comfortable, Behavior is calm, cooperative. cm10 Neuro: No deficits noted. Level of Consciousness is awake, alert, obeys commands, Oriented to person, place, time, situation, Appropriate for age. Historical: - Allergies: 19:50 Latex; cm10 19:50 Levofloxacin; cm10 - PMHx: 19:50 Anemia; stomach tumor; Diabetes mellitus; cm10 - PSHx: 19:50 None; cm10 - Immunization history:: Adult Immunizations up to date. - Infectious Disease History:: Denies. - Social history:: Smoking status: Patient reports the use of cigarette tobacco products, smokes one pack cigarettes per day. Screenin:32 Abuse screen: Denies threats or abuse. Denies injuries from another. Nutritional ss screening: No deficits noted. Tuberculosis screening: Never had TB. Assessment: 21:17 Reassessment: called from lobby, no answer. Unable to locate patient. ss 21:32 Reassessment: called from lobby, no answer. Unable to locate patient. ss Vital Signs: 19:48 BP 117 / 72; Pulse 103; Resp 16; Temp 97.1(IR); Pulse Ox 95% on R/A; Weight 88.45 kg; cm10 Height 5 ft. 7 in. ; Pain 0/10; 19:48 Body Mass Index 30.54 (88.45 kg, 170.18 cm) cm10 19:48 Pain Scale: Adult cm10 ED Course: 19:26 Patient arrived in ED. im 19:49 Triage completed. cm10 19:50 Arm band placed on Patient placed in waiting room. cm10 20:36 Ayla Horne PA-C is PHCP. sb4 20:36 Nakul Castro MD is Attending Physician. sb4 Administered Medications: No medications were administered Medication: 21:32 VIS not applicable for this client. ss Outcome: 21:46 Eloped from waiting room, before seeing physician ss 21:46 unknown 21:47 Patient left the ED. ss Signatures: Jeanie Boyce, RN RN ss Ayla Horne PA-C PA-C sb4 Pattie Hubbard Clarissa, RN RN cm10
[2024-01-23 22:02] VITALS: BP 117/72; TEMP 97.1; O2SAT 95
== END 2024-01-23 21:47 | disposition left against medical advice (07) ==
LOC: ER 19:23
DX: Z53.21 Procedure and treatment not carried out due to patient leaving prior to being seen by health care provider (principal)
CPT/HCPCS: 99281